=== PATIENT | female | born 1955 | race Caucasian/White ===

== ENCOUNTER → 2019-08-17 07:45 | Outpatient (CLI) | payer BC, SELFPAY ==
[2017-03-28 18:10] VITALS: BMI 38.2
[2019-08-17 10:15] LABS: Absolute Lymphocyte Count 2.19 X10^3/uL (0.83-4.51); Absolute Neutrophil Count 5.8 X10^3/uL (2.0-7.7); Basophil# 0.04 X10^3/uL; Basophil% 0.5 % (0-1); Eosinophil# 0.26 X10^3/uL; Eosinophils% 2.9 % (0-5); Lymphocyte # 2.19 X10^3/ul (4.0); Lymphocyte % 24.8 % (19-41); Mean Corp Hgb Conc 31.8 g/dL (32-36); Mean Corpuscular Hgb 29.2 pg (27.0-32.0); Mean Corpuscular Volume 91.9 fL (81-99); Monocyte# 0.48 X10^3/uL; Monocyte% 5.4 % (0-10); NRBC Flagged by Analyzer 0 % (0-5); Neutrophil # 5.82 X10^3/uL (2.7-7.7); Neutrophil % 66.1 % (47-70); Platelet Count 258 K/mm3 (150-450); RBC Distribution Width CV 13.4 % (11.6-14.6); RBC Distribution Width SD 45.4 fl (35.1-43.9); Red Blood Count 4.79 M/mm3 (4.2-5.4); White Blood Count 8.8 K/mm3 (4.4-11.0)
[2019-08-17 10:36] LABS: ALB/GLOB Ratio 0.9 RATIO (0.9-2.4); AST(SGOT) 25 U/L (15-37); Alanine Aminotransfer ALT/SGPT 32 U/L (13-56); Albumin, Serum 3.5 g/dL (3.2-5.0); Alkaline Phosphatase 88 U/L (45-117); Anion Gap 5 (5-15); BUN 17 mg/dL (7-18); BUN/Creat Ratio 24.1 RATIO (10-20); Calcium,Total 8.7 mg/dL (8.5-10.1); Chloride 106 mmol/L (98-107); Cholesterol 172 mg/dL (200); Creatinine, Serum 0.71 mg/dL (0.55-1.02); EST Glomerular Filtration Rate 89 mL/min (>60); Est Glom Filt Rate - Afr Amer 107 mL/min (>60); Globulin 3.7 g/dL (2.2-4.2); Glucose 99 mg/dL (74-106); High Density Lipoprotein 51 mg/dL; Potassium 3.7 mmol/L (3.5-5.1); Protein, Total 7.2 g/dL (6.4-8.2); Sodium Level 142 mmol/L (136-145); Triglycerides 115 mg/dL; Very Low Density Lipoprotein 23 mg/dL (5-40)
[2019-08-18 12:58] LABS: Thyroid Stim Hormone (TSH) 3.56 uIU/mL (0.358-3.74)
== END ==
PROVIDERS: Family Provider Family Medicine; PCP Family Medicine; Referring Provider Family Medicine; Visit Provider Family Medicine
DX: E78.00 Pure hypercholesterolemia, unspecified (principal); Q61.3 Polycystic kidney, unspecified; R79.82 Elevated C-reactive protein (CRP); I10 Essential (primary) hypertension; R53.83 Other fatigue
CPT/HCPCS: 36415; 80053; 80061; 84443; 85025; 86140

== ENCOUNTER → 2021-03-07 08:12 | Outpatient (CLI) | payer BC, SELFPAY ==
--- NOTE | 2021-03-07 08:16 | BI_ITS ---
MAMMOGRAPHY - BILATERAL SCREENING REASON FOR EXAM: Female, 66 years old. Routine annual screening examination. PERTINENT HISTORY: Non-contributory. History of prior right ultrasound-guided breast biopsy. TECHNIQUE: Digital bilateral breast kirti (3D mammographic acquisition) in the CC and MLO projections. 2-D mediolateral oblique (MLO) and craniocaudad (CC) views of both breasts were obtained. CAD: Full Field Digital Mammography with Computer Added Detection was performed. COMPARISON: Comparison is made with prior study dated 11/06/2016 and 05/03/2012. FINDINGS: Breast Composition: The breasts are almost entirely fatty. There are no dominant masses or suspicious calcifications. Stable benign-appearing bilateral axillary lymph nodes. No other significant abnormalities are identified. There has been no significant change since the prior study. BI/SCRN MAMM (CAD)W/KIRTI BILAT IMPRESSION: Stable bilateral screening mammogram. Yearly follow-up mammogram recommended. (A) ASSESSMENT CATEGORY: BIRADS Category 2: Benign. A letter regarding these results will be sent to the patient by the facility within 30 days. Approximately 10% of breast cancers are not detected by mammography. A normal mammogram should not delay biopsy of a clinically suspicious abnormality. [id number] Electronically Signed: Km Barrett MD at 10:07 EDT , Service support ,
== END ==
PROVIDERS: PCP Family Medicine; Referring Provider Family Medicine; Visit Provider Family Medicine
DX: Z12.31 Encounter for screening mammogram for malignant neoplasm of breast (principal)
CPT/HCPCS: 77063; 77067

== ENCOUNTER → 2021-06-25 07:46 | Outpatient (CLI) | payer BC, SELFPAY ==
[2017-03-28 18:10] VITALS: BMI 38.2
[2021-06-25 10:38] LABS: ALB/GLOB Ratio 1.1 RATIO (0.9-2.4); AST(SGOT) 24 U/L (15-37); Alanine Aminotransfer ALT/SGPT 40 U/L (13-56); Albumin, Serum 3.8 g/dL (3.2-5.0); Alkaline Phosphatase 82 U/L (45-117); Anion Gap 5 (5-15); BUN 17 mg/dL (7-18); BUN/Creat Ratio 24.6 RATIO (10-20); Chloride 104 mmol/L (98-107); Cholesterol 170 mg/dL (200); Creatinine, Serum 0.69 mg/dL (0.55-1.02); EST Glomerular Filtration Rate 90 mL/min (>60); Est Glom Filt Rate - Afr Amer 109 mL/min (>60); Globulin 3.6 g/dL (2.2-4.2); Glucose 102 mg/dL (74-106); High Density Lipoprotein 46 mg/dL; Potassium 4.1 mmol/L (3.5-5.1); Protein, Total 7.4 g/dL (6.4-8.2); Sodium Level 140 mmol/L (136-145); Triglycerides 151 mg/dL; Very Low Density Lipoprotein 30 mg/dL (5-40)
[2021-06-25 10:49] LABS: Microalbumin,Random Urine < 5.0 mg/L (NO RANGE EST.)
== END ==
PROVIDERS: PCP Family Medicine; Referring Provider Family Medicine; Visit Provider Family Medicine
DX: I10 Essential (primary) hypertension (principal)
CPT/HCPCS: 36415; 80053; 80061; 82043; 82570

== ENCOUNTER → 2021-08-02 | Outpatient (CLI) | payer BC, SELFPAY | END | disposition home or self-care (01) | LOC: LABSPEC 13:43 | PROVIDERS: PCP Family Medicine; Referring Provider Family Medicine; Visit Provider Family Medicine | DX: Z20.822 Contact with and (suspected) exposure to COVID-19 (principal) | CPT/HCPCS: 87635; U0005; U0003 ==

== ENCOUNTER → 2021-11-18 | Outpatient (CLI) | payer BC, SELFPAY | END | disposition home or self-care (01) | LOC: LABSPEC 11-19 10:17 | PROVIDERS: PCP Family Medicine; Referring Provider Family Medicine; Visit Provider Family Medicine | DX: Z20.822 Contact with and (suspected) exposure to COVID-19 (principal) | CPT/HCPCS: 87633; 87635; U0005; U0003 ==

== ENCOUNTER 2021-12-09 08:08 | Outpatient (CLI) | payer BC, SELFPAY | END 2021-12-09 23:59 | disposition short-term general hospital (02) | LOC: LABSPEC 12-10 08:08 | PROVIDERS: Referring Provider Family Medicine; Visit Provider Family Medicine | DX: U07.1 COVID-19 (principal) | CPT/HCPCS: 87635; U0003; U0005 ==

== ENCOUNTER 2021-12-13 12:58 | Outpatient (CLI) | payer BC, SELFPAY ==
[2021-12-13 13:07] VITALS: BMI 35.2
[2021-12-13] MEDS: 0.9% Saline Lock 10 ML Syringe IV (13:13)
--- NOTE | 2021-12-13 14:24 | NURSING ---
Pt c/o lower back pain during infusion. Infusion stopped until pain subsided and restarted at 155cc/hr.
[2021-12-13 14:56] VITALS: BP 134/78; PULSE 71; RESP 16; TEMP 36.4; O2SAT 98
--- NOTE | 2021-12-13 14:56 | NURSING ---
No further back pain during infusion.
[2021-12-13 15:50] VITALS: BP 156/79; PULSE 74; RESP 16; TEMP 36.4; O2SAT 98
== END 2021-12-13 23:59 | disposition home or self-care (01) ==
LOC: MS3OUT 12:59 → MS3 12:59
PROVIDERS: Visit Provider Nurse Practitioner Adult Health
DX: U07.1 COVID-19 (principal)
CPT/HCPCS: J7050; M0245; Q0245; A4216

== ENCOUNTER 2022-01-06 09:09 | Outpatient (CLI) | payer BC, SELFPAY ==
[2022-01-06 10:04] LABS: Absolute Lymphocyte Count 2.67 X10^3/uL (0.83-4.51); Basophil# 0.04 X10^3/uL; Basophil% 0.4 % (0-1); Eosinophil# 0.14 X10^3/uL; Eosinophils% 1.3 % (0-5); Hematocrit 43.7 % (37-47); Lymphocyte # 2.67 X10^3/ul (0.83-4.51); Lymphocyte % 25.4 % (19-41); Mean Corpuscular Volume 90.5 fL (81-99); Mean Platelet Vol. 10.2 fl (6.2-12.0); Monocyte# 0.64 X10^3/uL; Monocyte% 6.1 % (0-10); NRBC Flagged by Analyzer 0 % (0-5); Neutrophil # 6.97 X10^3/uL (2.7-7.7); Neutrophil % 66.4 % (47-70); Platelet Count 334 K/mm3 (150-450); RBC Distribution Width CV 14.1 % (11.6-14.6); RBC Distribution Width SD 46.4 fl (35.1-43.9); Red Blood Count 4.83 M/mm3 (4.2-5.4); White Blood Count 10.5 K/mm3 (4.4-11.0)
[2022-01-06 10:25] LABS: Hemoglobin A1c 5.7 % (3.8-5.6)
[2022-01-06 11:01] LABS: ALB/GLOB Ratio 0.9 RATIO (0.9-2.4); AST(SGOT) 27 U/L (15-37); Alanine Aminotransfer ALT/SGPT 31 U/L (13-56); Alkaline Phosphatase 89 U/L (45-117); Anion Gap 7 (5-15); BUN 17 mg/dL (7-18); BUN/Creat Ratio 22.4 RATIO (10-20); Calcium,Total 9.6 mg/dL (8.5-10.1); Chloride 102 mmol/L (98-107); Creatinine, Serum 0.76 mg/dL (0.55-1.02); EST Glomerular Filtration Rate 81 mL/min (>60); Est Glom Filt Rate - Afr Amer 98 mL/min (>60); Globulin 4.3 g/dL (2.2-4.2); Glucose 94 mg/dL (74-106); Potassium 3.6 mmol/L (3.5-5.1); Protein, Total 8.3 g/dL (6.4-8.2); Sodium Level 137 mmol/L (136-145); Thyroid Stim Hormone (TSH) 1.78 uIU/mL (0.358-3.74)
== END 2022-01-06 23:59 | disposition home or self-care (01) ==
LOC: MFPLAB 09:10
PROVIDERS: Visit Provider Family Medicine
DX: E66.01 Morbid (severe) obesity due to excess calories (principal); Z68.37 Body mass index [BMI] 37.0-37.9, adult
CPT/HCPCS: 36415; 80053; 83036; 84443; 85025

== ENCOUNTER → 2023-07-20 | Outpatient (CLI) | payer MEDICARE, OTHER, SELFPAY ==
[2023-07-20 14:45] LABS: AST(SGOT) 19 U/L (15-37); Alanine Aminotransfer ALT/SGPT 28 U/L (13-56); Albumin, Serum 3.8 g/dL (3.2-5.0); Alkaline Phosphatase 79 U/L (45-117); Anion Gap 6 (5-15); BUN 15 mg/dL (7-18); BUN/Creat Ratio 20.8 RATIO (10-20); CRP, High Sensitivity Cardiac 8.58 mg/L; Calcium,Total 9.5 mg/dL (8.5-10.1); Chloride 107 mmol/L (98-107); Cholesterol 170 mg/dL (200); Creatinine, Serum 0.72 mg/dL (0.55-1.02); EST Glomerular Filtration Rate 86 mL/min (>60); Est Glom Filt Rate - Afr Amer 103 mL/min (>60); Globulin 3.8 g/dL (2.2-4.2); Glucose 91 mg/dL (74-106); High Density Lipoprotein 54 mg/dL; Lipase 45 U/L (13-75); Potassium 3.9 mmol/L (3.5-5.1); Protein, Total 7.6 g/dL (6.4-8.2); Sodium Level 138 mmol/L (136-145); Triglycerides 165 mg/dL; Very Low Density Lipoprotein 33 mg/dL (5-40)
== END | disposition home or self-care (01) ==
PROVIDERS: PCP Family Medicine; Visit Provider Family Medicine
DX: R79.82 Elevated C-reactive protein (CRP) (principal); E78.6 Lipoprotein deficiency; E66.9 Obesity, unspecified; Z68.35 Body mass index [BMI] 35.0-35.9, adult
CPT/HCPCS: 36415; 80053; 80061; 83690; 86141

== ENCOUNTER → 2023-08-17 | Outpatient (CLI) | payer MEDICARE, OTHER, SELFPAY ==
[2023-08-17 13:53] LABS: Mucous, Urine 0 SEEN /hpf (<or=2+)
[2023-08-17 15:54] LABS: Color, Urine Yellow (Yellow); Glucose, Dipstick Normal (Normal); Ketone-Dipstick Negative (Negative); Leukocyte Esterase-Dipstick 500 /ul (Negative); Nitrite-Dipstick Negative (Negative); Occult Blood-Urine 250 /ul (Negative); Protein-Dipstick 30 mg/dl (Negative); Specific Gravity, Urine 1.015 (1.002-1.030); Urine Bilirubin Dipstick Negative (Negative); Urine Clarity Cloudy (Clear); Urine Urobilinogen Normal (Normal)
[2023-08-17 16:47] LABS: Amorphous Sediment 1+ PHOS; Bacteria RARE /hpf (None Seen); Red Blood Cells-Urine > 100 SEEN /hpf (0-5); Squamous Epithelial Cells - UA 0-5 SEEN /hpf (5-10); White Blood Cells >100 SEEN /hpf (0-5)
== END | disposition home or self-care (01) ==
LOC: LABSPEC 13:53
PROVIDERS: PCP Family Medicine; Visit Provider Family Medicine
DX: N39.0 Urinary tract infection, site not specified (principal)
CPT/HCPCS: 81001; 87077; 87086; 87088; 87186

== ENCOUNTER → 2024-03-02 | Outpatient (CLI) | payer MEDICARE, OTHER, SELFPAY ==
--- NOTE | 2024-03-02 13:20 | BI_ITS ---
MAMMOGRAPHY - BILATERAL SCREENING REASON FOR EXAM: Female, 69 years old. Routine annual screening examination. PERTINENT HISTORY: Non-contributory. TECHNIQUE: Digital bilateral breast kirti (3D mammographic acquisition) in the CC and MLO projections. 2-D mediolateral oblique (MLO) and craniocaudad (CC) views of both breasts were obtained. CAD: Full Field Digital Mammography with Computer Added Detection was performed. COMPARISON: Comparison is made with prior study dated March 07, 2021 and November 06, 2016. FINDINGS: Breast Composition: The breasts are almost entirely fatty. There are no dominant masses or suspicious calcifications. Stable small benign-appearing bilateral axillary lymph nodes. No other significant abnormalities are identified. There has been no significant change since the prior study. BI/SCRN MAMM (CAD)W/KIRTI BILAT IMPRESSION: Stable bilateral screening mammogram. Yearly follow-up mammogram recommended. (A) ASSESSMENT CATEGORY: BIRADS Category 2: Benign. A letter regarding these results will be sent to the patient by the facility within 30 days. Approximately 10% of breast cancers are not detected by mammography. A normal mammogram should not delay biopsy of a clinically suspicious abnormality. [id number] Electronically Signed: Km Barrett MD at 15:18 EDT ,
--- NOTE | 2024-03-02 13:26 | BD_ITS ---
STUDY: DUAL ENERGY X-RAY ABSORPTIOMETRY / DXA REASON FOR EXAM: Female, 69 years old. [id number] TECHNIQUE: Bone Mineral Density (BMD) measurements of lumbar spine and bilateral hips were obtained. COMPARISON: None. FINDINGS: Lumbar Spine (L1-L4): g/cm2 (1.134) / T-score (0.8) / Z-score (2.8) Findings are suggestive of normal bone density with a low fracture risk. Left Femur Total: g/cm2 (1.182) / T-score (2.0) / Z-score (3.4) Left Femoral Neck: g/cm2 (1.027) / T-score (1.6) / Z-score (3.3) Right Femur Total: g/cm2 (1.081) / T-score (1.1) / Z-score (2.6) Right Femoral Neck: g/cm2 (1.056) / T-score (1.9) / Z-score (3.6) BD/Dexa Bone Density Study IMPRESSION: The patient is considered normal as outlined below according to World Nehem[employer] Organization (WHO) criteria with a low fracture risk. Reference Information: The T-score is the number of standard deviations above or below the standard which is normal for young adults at their peak bone mineral density. The World Health Organization (WHO) interprets the T-scores as follows: Above -1 Normal bone density Between -1 and -2.5 Osteopenia Equal to / or below -2.5 Osteoporosis As a practical clinical guideline, osteopenia may be graded as follows: Mild -1 through -1.5 Moderate -1.6 through -2.0 Severe -2.1 through -2.4 The Z-score is the number of standard deviations above or below age-matched controls. A Z-score of less than -1.5 would be considered abnormal. References: 1. NIH Osteoporosis and Related Bone Diseases www osteo.org 2. International Society for Clinical Densitometry www iscd.org 3. National Osteoporosis Foundation www nof.org Electronically Signed: Km Barrett MD at 19:19 EDT ,
== END | disposition home or self-care (01) ==
LOC: OPBD 13:19
PROVIDERS: PCP Family Medicine; Referring Provider Family Medicine; Visit Provider Family Medicine
DX: Z12.31 Encounter for screening mammogram for malignant neoplasm of breast (principal); Z78.0 Asymptomatic menopausal state
CPT/HCPCS: 77063; 77067; 77080

== ENCOUNTER → 2024-09-02 | Outpatient (CLI) | payer MEDICARE, OTHER, SELFPAY ==
--- NOTE | 2024-09-02 14:15 | RAD_ITS ---
STUDY: X-RAY - CERVICAL SPINE REASON FOR EXAM: Female, 69 years old. pain TECHNIQUE: XR Spine Cervical Views 6 COMPARISON: None FINDINGS: Normal anterior atlantoaxial articulation. No acute findings of the odontoid process. There is straightening of the normal cervical lordosis. There is multi-level endplate spondylosis. There is multi-level degenerative disc disease with multilevel disc space narrowing. There is multi-level osseous foraminal stenosis. The soft tissue structures are unremarkable. RAD/Cerv Spine 4 or 5 Views IMPRESSION: There are degenerative changes as noted above. Electronically Signed: Andrés Roldan MD at 15:35 EDT ,
== END | disposition home or self-care (01) ==
PROVIDERS: PCP Family Medicine; Referring Provider Family Medicine; Visit Provider Family Medicine
DX: M54.2 Cervicalgia (principal)
CPT/HCPCS: 72050

== ENCOUNTER 2024-09-16 14:30 | Outpatient (RCR) | payer MEDICARE, OTHER, SELFPAY ==
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
--- NOTE | 2024-11-09 13:49 | HP.PTDCNRP_ITS ---
Patient Information Patient Information: KALEIGH GOSS was seen in my office for initial evaluation on 09/01/24. The following Plan of Care was established for this patient: POC Established Initial Frequency: 2x /Week Initial Duration: 4 Weeks Anticipated Interventions Patient/Client Instruction: Educate patient on: Condition and Plan of Care For the Purpose of:: To decrease pain, To increase ROM, To improve muscle performance and motor function, To increase tolerance to activity/condition/position, To improve ability of physical actions for home/community/work/leisure, To improve health of tissue, To decrease soft tissue restriction, To increase flexibility/ROM and To improve tolerance to ADL's Therapeutic Exercise to Include: Strength training, Postural training, Flexibilty training, Active ROM and Scapular Strength/Stabilization For the Purpose of:: To decrease pain, To increase ROM, To improve muscle performance and motor function, To increase tolerance to activity/condition/position, To improve ability of physical actions for home/community/work/leisure, To improve health of tissue, To decrease soft tis harman restriction and To increase flexibility/ROM Manual Therapy Techniques to Include: Soft tissue mobilization For the Purpose of:: To decrease pain, To increase ROM, To improve muscle performance and motor function, To improve ability to perform ADL's, To increase tolerance to activity/condition/position, To improve ability of physical actions for home/community/work/leisure, To improve health of tissue, To decrease soft tissue restriction and To increase flexibility/ROM TENS: Yes IF ES: Yes Cryotherapy (ice pack, ice massage): Yes Thermo therapy (hot pack): Yes Ultrasound (thermal/non thermal): Yes For the Purpose of:: To decrease pain, To increase ROM, To improve nutrient delivery to tissue, To increase oxygenation perfusion, To improve health of tissue and To decrease soft tissue restriction Last Seen Last Seen: This patient was last seen in our office . Pertinent comments regarding their Physical therapy will appear below: Patient was seen for PT for cervicalgia for cervical ROM ,postural ex's and HEP thus D/C At this point I will be discontinuing this patient from physical therapy. I would be happy to see this patient again in the future if found appropriate by the physician. Thank you! Harjeet Owens, PT, Cert MDT, OCS Balance/Gait/Functional tests Balance/Special Test Scores Oswestry Neck Score: 28
== END 2024-09-16 19:00 | disposition home or self-care (01) ==
LOC: PT 14:30
PROVIDERS: PCP Family Medicine; Referring Provider Family Medicine; Visit Provider Family Medicine
DX: M54.2 Cervicalgia (principal)
CPT/HCPCS: 97014; 97110; 97140; 97162; G0283

== ENCOUNTER → 2024-11-08 | Outpatient (CLI) | payer MEDICARE, OTHER, SELFPAY ==
[2024-11-08 19:11] LABS: Anion Gap 7 (5-15); BUN 22 mg/dL (7-18); BUN/Creat Ratio 31.2 RATIO (10-20); Calcium,Total 9.9 mg/dL (8.5-10.1); Chloride 101 mmol/L (98-107); EST Glomerular Filtration Rate 87 mL/min (>60); Est Glom Filt Rate - Afr Amer 106 mL/min (>60); Glucose 110 mg/dL (74-106); Potassium 3.2 mmol/L (3.5-5.1); Sodium Level 137 mmol/L (136-145)
== END | disposition home or self-care (01) ==
LOC: MFPLAB 16:18
PROVIDERS: PCP Family Medicine; Visit Provider Family Medicine
DX: I10 Essential (primary) hypertension (principal)
CPT/HCPCS: 36415; 80048

== ENCOUNTER → 2024-12-20 | Outpatient (CLI) | payer MEDICARE, OTHER, SELFPAY ==
[2024-12-20 13:34] LABS: Anion Gap 9 (5-15); BUN 15 mg/dL (7-18); BUN/Creat Ratio 19.9 RATIO (10-20); Calcium,Total 9.6 mg/dL (8.5-10.1); Chloride 105 mmol/L (98-107); Creatinine, Serum 0.75 mg/dL (0.55-1.02); EST Glomerular Filtration Rate 81 mL/min (>60); Est Glom Filt Rate - Afr Amer 98 mL/min (>60); Glucose 99 mg/dL (74-106); Magnesium 2.7 mg/dL (1.6-2.6); Potassium 3.9 mmol/L (3.5-5.1); Sodium Level 140 mmol/L (136-145)
== END | disposition home or self-care (01) ==
LOC: MFPLAB 10:13
PROVIDERS: PCP Family Medicine; Referring Provider Family Medicine; Visit Provider Family Medicine
DX: I10 Essential (primary) hypertension (principal); E87.6 Hypokalemia
CPT/HCPCS: 36415; 80048; 83735

== ENCOUNTER → 2025-02-13 | Outpatient (CLI) | payer MEDICARE, OTHER, SELFPAY ==
[2025-02-13 16:08] LABS: Anion Gap 12 (5-15); BUN 19 mg/dL (4-19); BUN/Creat Ratio 24.6 RATIO (10-20); Calcium,Total 10.6 mg/dL (7.6-11.0); Carbon Dioxide 26.2 mmol/L (21.0-32.0); Chloride 99 mmol/L (98-108); Creatinine, Serum 0.78 mg/dL (0.70-1.20); EST Glomerular Filtration Rate 82 (>60); Glucose 88 mg/dL (70-99); Potassium 4.1 mmol/L (3.3-5.1); Sodium Level 137 mmol/L (133-145)
== END | disposition home or self-care (01) ==
LOC: MFPLAB 12:33
PROVIDERS: PCP Family Medicine; Referring Provider Family Medicine; Visit Provider Family Medicine
DX: I10 Essential (primary) hypertension (principal)
CPT/HCPCS: 36415; 80048

== ENCOUNTER → 2025-09-15 | Outpatient (CLI) | payer MEDICARE, OTHER, SELFPAY ==
[2025-09-15 09:59] LABS: AST(SGOT) 29 U/L (<=31); Alanine Aminotransfer ALT/SGPT 25 U/L (<=34); Albumin, Serum 4.1 g/dL (3.4-4.8); Alkaline Phosphatase 79 U/L (35-104); Anion Gap 11 (5-15); BUN 17 mg/dL (4-19); BUN/Creat Ratio 23.5 RATIO (10-20); Bilirubin, Direct 0.10 mg/dL (0.00-0.30); Calcium,Total 9.7 mg/dL (7.6-11.0); Carbon Dioxide 28.1 mmol/L (21.0-32.0); Chloride 102 mmol/L (98-108); Cholesterol 160 mg/dL (<=200); Globulin 3.0 g/dL (2.2-4.2); Glucose 118 mg/dL (70-99); Low Density Lipoprotein Calc. 84 mg/dL; Magnesium 2.7 mg/dL (1.5-2.2); Potassium 3.5 mmol/L (3.3-5.1); Triglycerides 161 mg/dL; Very Low Density Lipoprotein 32 mg/dL (5-40); cholesterol:hdl ratio screen 3.66
[2025-09-16 05:07] LABS: CRP, High Sensitivity 14.95 mg/L (0.00-3.00)
== END | disposition home or self-care (01) ==
LOC: LAB 08:22
PROVIDERS: PCP Family Medicine; Referring Provider Internal Medicine Cardiovascular Disease; Visit Provider Internal Medicine Cardiovascular Disease
DX: E78.5 Hyperlipidemia, unspecified (principal); I10 Essential (primary) hypertension
CPT/HCPCS: 36415; 80048; 80061; 80076; 83695; 83735; 84443; 86141

== ENCOUNTER → 2025-10-09 | Outpatient (CLI) | payer MEDICARE, OTHER, SELFPAY ==
--- NOTE | 2025-10-09 12:51 | ECHOD_ITS ---
Reason For Study Reason For Study: HYPERTENSION Procedure This was a 2D Doppler, Color Flow transthoracic echocardiogram. Exam performed in department. Left Ventricle Normal LV size. The left ventricular ejection fraction is 65 %. Stage 1 diastolic dysfunction. No regional wall motion abnormalities noted. Right Ventricle Normal RV size. Normal systolic function. Atria Normal left atrium. Normal right atrium. Mitral Valve Normal mitral valve. Tricuspid Valve Normal tricuspid valve. Aortic Valve Normal aortic valve. Trisinus/trileaflet aortic valve. Pulmonic Valve Normal pulmonic valve. Great Vessels Normal aortic root. The pulmonary artery is normal size. Inferior vena cava collapse with respiration. Pericardium/Pleural No pericardial effusion. MMode/2D Measurements & Calculations LVIDd: 4.9 cm IVSd: 0.78 cm Ao root diam: 3.1 cm LVIDs: 2.9 cm LVPWd: 0.68 cm RVDd: 3.8 cm FS: 41.3 % LAV(MOD-bp): 42.2 ml LVAd ap4: 27.9 cm2 LVAd ap2: 25.5 cm2 LAV(MOD-bp) Indexed: 20.7 ml/m2 LVLd ap4: 8.1 cm LVLd ap2: 8.1 cm LAV(MOD-sp2): 50.3 ml EDV(MOD-sp4): 78.3 ml EDV(MOD-sp2): 66.2 ml LAV(MOD-sp4): 34.0 ml EDV(sp4-el): 81.6 ml EDV(sp2-el): 68.0 ml LVAs ap4: 13.5 cm2 LVAs ap2: 11.9 cm2 LVLs ap4: 6.7 cm LVLs ap2: 6.5 cm ESV(MOD-sp4): 22.9 ml ESV(MOD-sp2): 19.5 ml ESV(sp4-el): 23.3 ml ESV(sp2-el): 18.7 ml EF(MOD-sp4): 70.7 % EF(MOD-sp2): 70.5 % EF(sp4-el): 71.5 % SV(MOD-sp4): 55.3 ml SV(MOD-sp2): 46.7 ml SV(sp4-el): 58.3 ml SI(MOD-sp4): 27.2 ml/m2 SI(MOD-sp2): 22.9 ml/m2 LA A4 area: 14.0 cm2 LA dimension(2D): 4.0 cm RA A4 area: 13.6 cm2 TAPSE: 2.3 cm Time Measurements MV dec time: 0.23 sec Doppler Measurements & Calculations MV E max calvin: 80.2 cm/sec Lat Peak E' Calvin: 9.1 cm/sec Med Peak E' Calvin: 6.5 cm/sec MV A max calvin: 95.7 cm/sec E/E' lat: 8.8 E/E' med: 12.4 MV E/A: 0.84 Ao V2 max: 118.0 cm/sec LV V1 max: 85.6 cm/sec MV dec slope: 346.9 cm/sec2 Ao max P.6 mmHg LV V1 max P.9 mmHg Ao V2 mean: 72.0 cm/sec LV V1 mean P.7 mmHg Ao mean P.5 mmHg LV V1 mean: 61.4 cm/sec Ao V2 VTI: 23.2 cm LV V1 VTI: 19.8 cm AV (velocity ratio): 0.85 PA V2 max: 76.1 cm/sec ECHO/Echo Complete Interpretation Summary Normal LV size. The left ventricular ejection fraction is 65 %. Stage 1 diastolic dysfunction. Structurally normal valves. Ordering Physician: Negro Duran Referring Physician: Sam Goddard Performed By: Augusta Oliveira RDCS
--- OUTSIDE RECORDS SUMMARY | 2025-10-09 15:12 | XMS RPT_ITS | CCD ---
Author Organization [facility] Care Team Providers Care [employer] Manager Name Role Phone Unavailable Primary Care Provider Unavailabl e Rupesh COATS, Dr. Vargas Primary Care Provider [phone] Rupesh COATS, Dr. Vargas Attending Provider Rupesh COATS, Dr. Vargas Referring Provider Rupesh COATS, Dr. Vargas Primary Care Physician Rupesh COATS, Dr. Vargas Referring Provider Renee COATS, Dr. Tom Attending Physician Renee COATS, Dr. Tom Referring Provider Goddard, Sam Primary Care Unavailable Goddard, Sam Attending Unavailable Goddard, Sam Referring Unavailable Renee, Columbia Attending Unavailable Renee, Columbia Referring Unavailable Goddard, Sam Primary Care Unavailable Renee, Columbia Attending Unavailable Renee, Columbia Referring Unavailable Goddard, Sam Primary Care Unavailable Renee, Negro Attending Unavailable Renee, Columbia Referring Unavailable Goddard, Sam Primary Care Unavailable Renee, Columbia Attending Unavailable Goddard, Sam Referring Unavailable Goddard, Sam Primary Care Unavailable Goddard, Sam Primary Care Unavailable Goddard, Sam Attending Unavailable Goddard, Sam Primary Care Unavailable Goddard, Sam Attending Unavailable Goddard, Sam Referring Unavailable Allergies Allergy Classification Reported Allergen(s) Allergy Type Date of Onset Reaction(s) Facility (2 sources) Amitriptyline; Translations: [AMITRIPTYLINE HCL] Drug Allergy 2 Other: See Comments [facility] (3 sources) Ampicillin; Translations: [AMPICILLIN] Drug Allergy 2 Diarrhea [facility] (2 sources) Benzalkonium; Translations: [BENZALKONIUM CHLORIDE] Drug Allergy 2 Rash [facility] (2 sources) Diclofenac; Translations: [DICLOFENAC SODIUM] Drug Allergy 2 GI Upset [facility] (2 sources) hydrOXYzine; Translations: [HYDROXYZINE HCL] Drug Allergy 2 Other: See Comments [facility] (2 sources) Imipramine; Translations: [IMIPRAMINE HCL] Drug Allergy 2 Unknown [facility] (2 sources) nefazodone; Translations: [NEFAZODONE HCL] Drug Allergy 2 Unknown [facility] (3 sources) Nizatidine; Translations: [NIZATIDINE] Drug Allergy 2 Other: See Comments [facility] (1 source) Amitriptyline Drug Allergy 5 "felt poorly" [facility] (1 source) Bacitracin Drug Allergy 5 Rash [facility] (1 source) Diclofenac Drug Allergy 5 Abd cramps/diarrhea [facility] (1 source) Etodolac Drug Allergy 5 dizziness [facility] (1 source) hydrOXYzine Drug Allergy 5 "felt poorly" [facility] (1 source) Imipramine Drug Allergy 5 PT UNSURE OF REACTION [facility] (1 source) nefazodone Drug Allergy 5 PT UNSURE OF REACTION [facility] (1 source) Neomycin Drug Allergy 5 Rash [facility] (1 source) Polymyxin B Drug Allergy 5 Rash [facility] (1 source) Amitriptyline Drug Allergy 5 [facility] (1 source) Ampicillin Drug Allergy 5 [facility] (1 source) Bacitracin Drug Allergy 5 [facility] (1 source) Diclofenac Drug Allergy 5 [facility] (1 source) Etodolac Drug Allergy 5 [facility] (1 source) hydrOXYzine Drug Allergy 5 [facility] (1 source) Imipramine Drug Allergy 5 [facility] (1 source) nefazodone Drug Allergy 5 [facility] (1 source) Neomycin Drug Allergy 5 [facility] (1 source) Nizatidine Drug Allergy 5 [facility] (1 source) polymyxin B Drug allergy (disorder) 5 [facility] Medications Current Medications Medication Drug Class(es) Dates Sig (Normalized) Sig (Original) 200 actuat albuterol 0.09 mg/actuat dry powder inhaler (1 source) beta2-Adrenergic Agonist Start: 09-11-2025 aspirin 81 mg oral tablet (1 source) Platelet Aggregation Inhibitor, Nonsteroidal Anti-inflammatory Drug Aspirin 81 mg CpDR Take by mouth. Active clonazePAM 0.5 mg oral tablet (7 sources) Benzodiazepine Start: 03-28-2017 End: 09-11-2025 take 1 tablet by mouth twice daily as needed Start: 01-13-2006 take 1 tablet by sourav th at bedtime Clonazepam 0.5 MG tablet Active 0.5 mg PO AT BEDTIME March 28, 2017 12:00am hydroCHLOROthiazide 25 mg oral tablet (1 source) Thiazide Diuretic Start: 09-13-2025 take 1 tablet by mouth once daily in the morning hydroCHLOROthiazide 25 mg / triamterene 37.5 mg oral capsule (6 sources) Potassium-spari ng Diuretic, Thiazide Diuretic Start: 10-28-2024 triamterene-h ydroCHLOROthi azide (DYAZIDE) 37.5-25 mg per capsule 10/28/2024 Active Start: 12-13-2021 End: 09-13-2025 Triamterene-Hydrochlorothiaz id 37.5-25 mg capsule Discontinued 1 NMA PO DAILY December 13, 2021 1:00am September 13, 2025 10:47am Start: 12-13-2021 take 1 capsule by mouth once daily Triamterene-Hydrochlorothiazid Active 1 CAP PO DAILY December 13, 2021 1:00am losartan potassium 100 mg oral tablet (1 source) Angiotensin 2 Receptor Francy Start: 09-13-2025 take 1 tablet by mouth once daily magnesium oxide 400 mg oral tablet (1 source) Start: 09-11-2025 End: 09-20-2025 take 1 tablet by mouth once daily Magnesium Oxide 400 mg magnesium tablet Discontinued 400 mg PO daily September 11, 2025 12:00am September 20, 2025 12:35pm multivitamin tablet (1 source) take 1 tablet by mouth once daily multivitamin tablet Take 1 tablet by mouth once daily. Active phentermine hydrochloride 37.5 mg oral tablet (1 source) Sympathomimetic Amine Anorectic Start: 08-23-2012 take 1 tablet by mouth once daily Phentermine HCl 37.5 mg tablet Take 1 tablet by mouth once daily. 0 08/23/2012 Active potassium citrate 10 meq extended release oral tablet (1 source) Start: 11-09-2024 potassium citrate ER (UROCIT-K) 10 mEq (1,080 mg) 11/09/2024 Active Tirzepatide (1 source) Start: 09-11-2025 Completed/Discontinued Medications Medication Drug Class(es) Dates Sig (Normalized) Sig (Original) ibuprofen 400 mg oral tablet (5 sources) Nonsteroidal Anti-inflammatory Drug Start: 03-30-2017 End: 09-11-2025 take 1 tablet by mouth every four hours as needed for pain Ibuprofen 400 MG tablet Discontinued 400 mg PO EVERY 4 HOURS NEEDED as needed for Mild Pain (-02/06) 0 0 March 30, 2017 12:00am September 11, 2025 11:32am Multivitamin-Iron -Folic Acid (Centrum Women) 1 EACH tablet (5 sources) Start: 03-28-2017 End: 09-13-2025 take 1 tablet by mouth once daily Multivitamin-Iron- Folic Acid (Centrum Women) 1 EACH tablet Discontinued 1 NMA PO DAILY March 28, 2017 12:00am September 13, 2025 9:54am Start: 03-28-2017 take 1 tablet by sourav th once daily Wlubrfcgkyko-Xeiu-Qffej Acid (Centrum Women) 1 EACH tablet Active 1 NMA PO DAILY March 28, 2017 12:00am Start: 03-28-2017 take 1 tablet by sourav th once daily Ovhchwjfqebe-Lcrr-Vltwt Acid (Centrum Women) 1 EACH tablet Active 1 EACH PO DAILY March 28, 2017 12:00am Problems Active Problems Problem Classification Problem Date Documented Date Episodic/Chronic Anxiety disorders (1 source) Anxiety; Translations: [Anxiety disorder, unspecified] 09-11-2025 Chronic Diseases of mouth; excluding dental (5 sources) Stomatitis; Translations: [Other forms of stomatitis] 03-30-2017 Episodic Disorders of lipid metabolism (1 source) Hyperlipidemia, unspecified; Translations: [Hyperlipidemia, unspecified] Onset: 09-28-2025 Chronic Essential hypertension (8 sources) Hypertensive disorder; Translations: [Essential (primary) hypertension] Onset: 09-13-2025 03-28-2017 Chronic Fever of unknown origin (5 sources) Fever; Translations: [Fever, unspecified] 03-28-2017 Episodic Other congenital anomalies (1 source) Congenital anomaly of skin; Translations: [Other specified congenital malformations of skin] Onset: 01-13-2006 06-09-2024 Chronic Other ear and sense organ disorders (5 sources) Presbycusis; Translations: [Presbycusis, unspecified ear] 03-28-2017 Episodic Other lower respiratory disease (2 sources) Dyspnea; Translations: [Shortness of breath] 09-11-2025 Episodic Other lower respiratory disease (2 sources) Shortness of breath; Translations: [Shortness of breath] Onset: 09-13-2025 Episodic Other nutritional; endocrine; and metabolic disorders (1 source) Obese class II; Translations: [Class 2 obesity] 09-11-2025 Chronic Other screening for suspected conditions (not mental disorders or infectious disease) (2 sources) Patient encounter status; Translations: [Encounter for screening for lipoid disorders] 09-13-2025 Episodic Other upper respiratory infections (1 source) Viral upper respiratory tract infection; Translations: [Acute upper respiratory infection, unspecified] 02-05-2025 Episodic Viral infection (5 sources) Disease caused by 2019-nCoV; Translations: [COVID-19] 12-12-2021 Episodic Past or Other Problems Problem Classification Problem Date Documented Da te Episodic/Chronic Other connective tissue disease (1 source) Capsulitis; Translations: [Enthesopathy, unspecified] Onset: 11-06-2010 11-06-2010 Episodic Results Test Name Value Interpretation Reference Range Facility Lipoprotein Aon 09-18-2025 Lipoprotein a [Moles/Vol] 22.5 nmol/L Normal <75.0 [facility] Comment on above: Order Comment: Order Date: 11/09/24 Order Info: [id number] - BMP Order Info: [id number] - MG Result Comment: Note : Values greater than or equal to 75.0 nmol/L may indicate an independent risk factor for CHD, but must be evaluated with caution when applied to non- populations due to the influence of genetic factors on Lp(a) across ethnicities. Performed at: [facility] [employer] [id number] Research Nutritionist: David Najera PhD, Phone: [phone] Performed By: #### L 501.5200 #### [facility] [address] [place], [address] CRP, High Sensitivity [id number] on 09-16-2025 CRP, HIGH SENS 14.95 mg/L High 0.00-3.00 [facility] Comment on above: Result Comment: Rela tive Risk for Future Cardiovascular Event Low <1.00 Average 1.00 - 3.00 High >3.00 Performed at: [employer] [id number] Research Nutritionist: David Najera PhD, Phone: [phone] Performed By: #### L 500.3400, L3100.7870, L500.2500, L3400.4600, L500.4100, L501.5200, L501.9520 #### [facility] [address] [place], [address] Anion gap in Serum or Plasma Ordered By: Columbia Renee on 09-15-2025 Anion gap [Moles/Vol] 11 mmol/L - [facility] BUN/creatinine ratioOrdered By: Negro Renee on 09-15-2025 Urea nitrogen/Creatinine [Mass ratio] 23.5 mg/mg High 09-18 [facility] Basic Metabolic Profile (BMP )on 09-15-2025 BUN/CRE 23.5 RATIO High 09-18 [facility] Comment on above: Performed By: #### L 500.3400, L3100.7870, L500.2500, L3400.4600, L500.4100, L501.5200, L501.9520 #### [facility] [address] [place], [address] Calcium [Mass/Vol] 9.7 mg/dL Normal 7.6-11.0 [facility] Comment on above: Performed By: #### L 500.3400, L3100.7870, L500.2500, L3400.4600, L500.4100, L501.5200, L501.9520 #### [facility] [address] [place], [address] Chloride [Moles/Vol] 102 mmol/L Normal 98-108 [facility] Comment on above: Performed By: #### L 500.3400, L3100.7870, L500.2500, L3400.4600, L500.4100, L501.5200, L501.9520 #### [facility] [address] [place], [address] CO2 [Moles/Vol] 28.1 mmol/L Normal 21.0-32.0 [facility] Comment on above: Performed By: #### L 500.3400, L3100.7870, L500.2500, L3400.4600, L500.4100, L501.5200, L501.9520 #### [facility] [address] [place], [address] Creatinine [Mass/Vol] 0.71 mg/dL Normal 0.70-1.20 [facility] Comment on above: Performed By: #### L 500.3400, L3100.7870, L500.2500, L3400.4600, L500.4100, L501.5200, L501.9520 #### [facility] [address] [place], [address] GAP 11 Normal 5-15 [facility] Comment on above: Performed By: #### L 500.3400, L3100.7870, L500.2500, L3400.4600, L500.4100, L501.5200, L501.9520 #### [facility] [address] [place], [address] GFR/1.73 sq M.predicted among non-blacks MDRD (S/P/Bld) [Vol rate/Area] 92 mL/min/{1.73_m2} Normal >60 [facility] Comment on above: Result Comment: mL/m in/1.73m2 CKD-EPI Creatinine Equation (2020) Performed By: #### L 500.3400, L3100.7870, L500.2500, L3400.4600, L500.4100, L501.5200, L501.9520 #### [facility] [address] [place], [address] Glucose [Mass/Vol] 118 mg/dL High 70-99 [facility] Comment on above: Performed By: #### L 500.3400, L3100.7870, L500.2500, L3400.4600, L500.4100, L501.5200, L501.9520 #### [facility] [address] [place], [address] Potassium [Moles/Vol] 3.5 mmol/L Normal 3.3-5.1 [facility] Comment on above: Performed By: #### L 500.3400, L3100.7870, L500.2500, L3400.4600, L500.4100, L501.5200, L501.9520 #### [facility] [address] [place], [address] Sodium [Moles/Vol] 141 mmol/L Normal 133-145 [facility] Comment on above: Performed By: #### L 500.3400, L3100.7870, L500.2500, L3400.4600, L500.4100, L501.5200, L501.9520 #### [facility] [address] [place], [address] Urea nitrogen [Mass/Vol] 17 mg/dL Normal 4-19 [facility] Comment on above: Performed By: #### L 500.3400, L3100.7870, L500.2500, L3400.4600, L500.4100, L501.5200, L501.9520 #### [facility] [address] [place], [address] Bilirubin directOrdered By: Negro Duran on 09-15-2025 Bilirubin.direct [Mass/Vol] 0.10 mg/dL 0.00-0.30 [facility] Bilirubin, totalOrdered By: Columbia Renee on 09-15-2025 Bilirubin [Mass/Vol] 0.25 mg/dL 0.00-1.30 [facility] C-reactive protein measureme nt by high sensitivity methodOrdered By: Negro Duran on 09-15-2025 C-reactive protein measurement by high sensitivity method 14.95 mg/L High 0.00-3.00 [facility] Comment on above: Relative Risk for Fu ture Cardiovascular Event Low <1.00 Average 1.00 - 3.00 High >3.00Performed at: [employer] [facility] [address] [id number] Director: David Najera PhD, Phone: [phone] Calculated very low density lipoprotein (VLDL) cholesterol measurementOrdered By: Negro Duran on 09-15-2025 Calculated very low density lipoprotein (VLDL) cholesterol measurement 32 mg/dL 5-40 [facility] Carbon dioxide, total [Moles /volume] in Central venous bloodOrdered By: Negro Duran on 09-15-2025 CO2 [Moles/Vol] 28.1 mmol/L 21.0-32.0 [facility] Chloride assayOrdered By: Yemi Duran on 09-15-2025 Chloride [Moles/Vol] 102 mmol/L 98-108 [facility] Glomerular filtration rate ( GFR) estimation/1.73 sq m using serum, plasma, or whole bOrdered By: Negroronak Duran on 09-15-2025 GFR/1.73 sq M.predicted among non-blacks MDRD (S/P/Bld) [Vol rate/Area] 92 mL/min/{1.73_m2} >60 [facility] Comment on above: mL/min/1.73m2 CKD-EP I Creatinine Equation (2020) LDL calc ser/plasOrdered By: Negro Duran on 09-15-2025 Cholesterol in LDL [Mass/Vol] 84 mg/dL [facility] Comment on above: Fpgmrxrqnv=672-053 m g/dL & Higher Zabf=788 mg/dL or greaterFriedwald Equation for LDL-C Laboratory - Chemistry and C hemistry - challengeOrdered By: Negro Duran on 09-15-2025 AST [Catalytic activity/Vol] 29 U/L <32 [facility] Lipid Profileon 09-15-2025 CHOL:HDL 3.66 Normal [facility] Comment on above: Performed By: #### L 500.3400, L3100.7870, L500.2500, L3400.4600, L500.4100, L501.5200, L501.9520 #### [facility] [address] [place], [address] Cholesterol [Mass/Vol] 160 mg/dL Normal <=200 [facility] Comment on above: Result Comment: Chol esterol level, Desirable <200 mg/dL Borderline high cholesterol 200-239 mg/dL High cholesterol >=240 mg/dL Recommendations of the NCEP Adult Treatment Panel for the following risk-cutoff thresholds for the [place] population. Performed By: #### L 500.3400, L3100.7870, L500.2500, L3400.4600, L500.4100, L501.5200, L501.9520 #### [facility] [address] [place], [address] Cholesterol in HDL [Mass/Vol] 44 mg/dL Normal [facility] Comment on above: Result Comment: Rula onal Cholesterol Education Program (NCEP) guidelines: <40 mg/dL: Low HDL-cholesterol (major risk factor for CHD) >= 60 mg/dL: High HDL-cholesterol (negative risk factor for CHD) HDL-cholesterol is affected by a number of factors, e.g. smoking, exercise, hormones, sex and age. Performed By: #### L 500.3400, L3100.7870, L500.2500, L3400.4600, L500.4100, L501.5200, L501.9520 #### [facility] [address] [place], [address] Cholesterol in LDL [Mass/Vol] 84 mg/dL Normal [facility] Comment on above: Result Comment: Bord cvhjui=728-336 mg/dL Higher Ttzt=602 mg/dL or greater Friedwald Equation for LDL-C Performed By: #### L 500.3400, L3100.7870, L500.2500, L3400.4600, L500.4100, L501.5200, L501.9520 #### [facility] [address] [place], [address] Cholesterol in VLDL [Mass/Vol] 32 mg/dL Normal 5-40 [facility] Comment on above: Performed By: #### L 500.3400, L3100.7870, L500.2500, L3400.4600, L500.4100, L501.5200, L501.9520 #### [facility] [address] [place], [address] Triglyceride [Mass/Vol] 161 mg/dL Normal [facility] Comment on above: Result Comment: The drugs N-Acetylcysteine and Metamizole may falsely depress this assay. Normal range: <150 mg/dL Borderline High: 150-199 mg/dL High: 200-499 mg/dL Very High: >500 mg/dL Performed By: #### L 500.3400, L3100.7870, L500.2500, L3400.4600, L500.4100, L501.5200, L501.9520 #### [facility] [address] [place], [address] Lipoprotein a [Mass/Vol]Orde red By: Negro Duran on 09-15-2025 Lipoprotein a [Moles/Vol] 22.5 nmol/L <75.0 [facility] Comment on above: Note: Values greater than or equal to 75.0 nmol/L may indicate an independent risk factor for CHD, but must be evaluated with caution when applied to non- populations due to the influence of genetic factors on Lp(a) across ethnicities.Performed at: - [facility] [id number] Director: David Najera PhD, Phone: [phone] Liver Profileon 09-15-2025 Albumin [Mass/Vol] 4.1 g/dL Normal 3.4-4.8 [facility] Comment on above: Performed By: #### L 500.3400, L3100.7870, L500.2500, L3400.4600, L500.4100, L501.5200, L501.9520 #### [facility] [address] [place] [id number] ALK PHOS 79 U/L Normal 35-104 [facility] Comment on above: Performed By: #### L 500.3400, L3100.7870, L500.2500, L3400.4600, L500.4100, L501.5200, L501.9520 #### [facility] [address] [place] [id number] ALT [Catalytic activity/Vol] 25 U/L Normal <=34 [facility] Comment on above: Performed By: #### L 500.3400, L3100.7870, L500.2500, L3400.4600, L500.4100, L501.5200, L501.9520 #### [facility] [address] [facility] [address] AST [Catalytic activity/Vol] 29 U/L Normal <=31 [facility] Comment on above: Performed By: #### L 500.3400, L3100.7870, L500.2500, L3400.4600, L500.4100, L501.5200, L501.9520 #### [facility] [address] [place], [address] Bilirubin [Mass/Vol] 0.25 mg/dL Normal 0.00-1.30 [facility] Comment on above: Performed By: #### L 500.3400, L3100.7870, L500.2500, L3400.4600, L500.4100, L501.5200, L501.9520 #### [facility] [address] [place], [address] Bilirubin.direct [Mass/Vol] 0.10 mg/dL Normal 0.00-0.30 [facility] Comment on above: Performed By: #### L 500.3400, L3100.7870, L500.2500, L3400.4600, L500.4100, L501.5200, L501.9520 #### [facility] [address] [place], [address] Globulin (S) [Mass/Vol] 3.0 g/dL Normal 2.2-4.2 [facility] Comment on above: Performed By: #### L 500.3400, L3100.7870, L500.2500, L3400.4600, L500.4100, L501.5200, L501.9520 #### [facility] [address] [place], [address] T PROT 7.1 g/dL Normal 5.9-8.4 [facility] Comment on above: Performed By: #### L 500.3400, L3100.7870, L500.2500, L3400.4600, L500.4100, L501.5200, L501.9520 #### [facility] [address] [place], [address] Magnesiumon 09-15-2025 Magnesium [Mass/Vol] 2.7 mg/dL High 1.5-2.2 [facility] Comment on above: Performed By: #### L 500.3400, L3100.7870, L500.2500, L3400.4600, L500.4100, L501.5200, L501.9520 #### [facility] [place], [address] Magnesium measurement (mass/ volume)Ordered By: Negro Duran on 09-15-2025 Magnesium (Unsp spec) [Mass/Vol] 2.7 mg/dL High 1.5-2.2 [facility] Potassium measurement (mass/ volume)Ordered By: Columbia Renee on 09-15-2025 Potassium (Unsp spec) [Mass/Vol] 3.5 mmol/L 3.3-5.1 [facility] Screening total cholesterol/ high density lipoprotein (HDL) cholesterol ratioOrdered By: Columbia Renee on 09-15-2025 Cholesterol.total/Choles terol in HDL [Mass ratio] 3.66 {ratio} [facility] Serum creatinine measurement (mass/volume)Ordered By: Negro Duran on 09-15-2025 Creatinine [Mass/Vol] 0.71 mg/dL 0.70-1.20 [facility] Serum globulin measurementOr dered By: Negro Duran on 09-15-2025 Globulin (S) [Mass/Vol] 3.0 g/dL 2.2-4.2 [facility] Serum glucose measurement (m ass/volume)Ordered By: Negro Renee on 09-15-2025 Glucose [Mass/Vol] 118 mg/dL High 70-99 [facility] Serum or plasma alanine quiles otransferase (ALT) measurementOrdered By: Columbia Renee on 09-15-2025 ALT [Catalytic activity/Vol] 25 U/L <35 [facility] Serum or plasma albumin radha urement (mass/volume)Ordered By: Negro Renee on 09-15-2025 Albumin [Mass/Vol] 4.1 g/dL 3.4-4.8 [facility] Serum or plasma alkaline hang sphatase measurementOrdered By: Negro Renee on 09-15-2025 ALP [Catalytic activity/Vol] 79 U/L 35-104 [facility] Serum or plasma calcium radha urement (mass/volume)Ordered By: Negro Renee on 09-15-2025 Calcium [Mass/Vol] 9.7 mg/dL 7.6-11.0 [facility] Serum or plasma cholesterol in HDL measurement (mass/volume)Ordered By: Negro Duran on 09-15-2025 Cholesterol in HDL [Mass/Vol] 44 mg/dL >40 [facility] Comment on above: National Cholesterol Education Program (NCEP) guidelines:<40 mg/dL: Low HDL-cholesterol (major risk factor for CHD)>= 60 mg/dL: High HDL-cholesterol (negative risk factor for CHD)HDL-cholesterol is affected by a number of factors, e.g. smoking, exercise, hormones, sex and age. Serum or plasma cholesterol measurement (mass/volume)Ordered By: Negro Duran on 09-15-2025 Cholesterol [Mass/Vol] 160 mg/dL <201 [facility] Comment on above: Cholesterol level, D esirable <200 mg/dLBorderline high cholesterol 200-239 mg/dLHigh cholesterol >=240 mg/dLRecommendations of the NCEP Adult Treatment Panel for the following risk-cutoff thresholds for the [place] population. Serum or plasma urea nitroge n measurement (mass/volume)Ordered By: Negro Duran on 09-15-2025 Urea nitrogen [Mass/Vol] 17 mg/dL 4-19 [facility] Sodium levelOrdered By: Chiki Duran on 09-15-2025 Sodium [Moles/Vol] 141 mmol/L 133-145 [facility] TSH DL <= 0.005 mIU/L QnOrde red By: Negro Duran on 09-15-2025 TSH Qn 2.020 uIU/mL 0.300-4.200 [facility] Thyroid Stim Hormone (TSH)on 09-15-2025 TSH 2.020 uIU/mL Normal 0.300-4.200 [facility] Comment on above: Performed By: #### L 500.3400, L3100.7870, L500.2500, L3400.4600, L500.4100, L501.5200, L501.9520 #### [facility] [place], [address] Total proteinOrdered By: Bluelatha Duran on 09-15-2025 Protein [Mass/Vol] 7.1 g/dL 5.9-8.4 [facility] Triglycerides measurementOrd ered By: Negro Renee on 09-15-2025 Triglyceride [Mass/Vol] 161 mg/dL <199 [facility] Comment on above: The drugs N-Acetylcy steine and Metamizole may falsely depress this assay. Normal range: <150 mg/dLBorderline High: 150-199 mg/dLHigh: 200-499 mg/dLVery High: >500 mg/dL Cardiology Visit Reporton Cardiology Visit Report [facility] [facility] [id number] [facility]. [address] [place] [address] OFFICE VISIT Date of Service: 09/13/25 MR#: [id number] Acct: [id number] Name: WOLFGANGKALEIGH SRINIVASAN Rep #: [id number] : 1955 Provider: Dr. Negro Duran MD Age/Sex: 70/F Location: [facility] Status: Signed HPI HPI History of Present Illness Details: The patient is a 70-year-old female with a history of hypertension and fluid retention, presenting for evaluation of dyspnea and management of blood pressure and medication regimen. The patient reports a recent episode of dyspnea while sitting, described as an uncomfortable sensation she had never experienced before. She denies any other associated symptoms during this episode. She has used albuterol as needed, which provides some relief. Her has noted that she often breathes heavily, particularly after activities such as running up stairs. She has been monitoring her blood pressure, heart rate, and oxygen saturation over the past year and notes that her blood pressure readings have been elevated recently. She has a documented history of hypertension and has been taking triamterene/hydrochlo rothiazide for decades, initially prescribed for fluid retention following a hysterectomy performed over 25 years ago. She reports that if she stops taking the medication, she experiences significant fluid retention, gaining approximately 3 pounds of water weight overnight, with associated edema in her feet and hands. She was advised to increase her dose to two pills daily due to elevated blood pressure but has been inconsistent with this regimen. She denies any chest pain or paroxysmal nocturnal dyspnea and she does not have any pedal edema when she is on her current medications. Physical exam is unremarkable electrocardiogram demonstrates sinus rhythm with a rate of 77 bpm poor R wave progression is present. In October, her potassium level was found to be low, and she was started on potassium supplementation. A recheck in February showed normal potassium levels, and the supplementation was discontinued. She was also prescribed magnesium oxide but has not taken it. She was recently prescribed doxepin to help with sleep instead of clonazepam, and compounded tirzepatide, which she plans to start now that she has returned from a trip to [place]. She walks 3 miles daily and follows a diet influenced by Mediterranean and Blue Zone principles. She denies eating this morning. She reports a history of elevated CRP levels and mentions that her cholesterol was last checked in January 2023. She has a family history of longevity, with her [id number] living to 97 years. 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 Required: No Accompanied by: Self Is patient in pain?: No Allergies ampicillin Allergy (Intermediate, Verified 09/13/25 09:52) Diarrhea bacitracin (From Neosporin (pep-efn-fcyis)) Allergy (Intermediate, Verified 09/13/25 09:52) Rash imipramine (From Tofranil) Allergy (Intermediate, Verified 09/13/25 09:52) PT UNSURE OF REACTION nefazodone (From Serzone) Allergy (Intermediate, Verified 09/13/25 09:52) PT UNSURE OF REACTION neomycin (From Neosporin (vfq-iaw-hkxpe)) Allergy (Intermediate, Verified 09/13/25 09:52) Rash polymyxin B (From Neosporin (sto-woh-uwuaa)) Allergy (Intermediate, Verified 09/13/25 09:52) Rash amitriptyline (From Elavil) Adverse Reaction (Intermediate, Verified 09/13/25 09:52) felt poorly diclofenac (From Voltaren) Adverse Reaction (Intermediate, Verified 09/13/25 09:52) Abd cramps/diarrhea etodolac Adverse Reaction (Intermediate, Verified 09/13/25 09:52) dizziness hydroxyzine (From Vistaril) Adverse Reaction (Intermediate, Verified 09/13/25 09:52) felt poorly nizatidine (From Axid) Adverse Reaction (Intermediate, Verified 09/13/25 09:52) felt poorly Medications ???Medication ???Instructions ???Recorded ???Confirmed ???Type albuterol sulfate 90 mcg/actuation 2 inh inhalation Q6H PRN 5 09/13/25 History breath activated powder inhaler clonazepam 0.5 mg tablet 0.5 mg PO BID PRN 09/11/25 5 History magnesium oxide 400 mg PO QDAY 09/11/25 09/13/25 H istory tirzepatide 2.5 mg/0.5 mL 2.5 mg subcut QWEEK 09/11/2509/13 History subcutaneous pen injector (Bijal) hydrochlorothiazide 25 mg tablet 25 mg PO QAM #90 tabs 09/13/25 Rx losartan 100 mg tablet 100 mg PO QDAY #90 tabs 09/13/25 1 Rx Have you fallen in the past year?: No PFSH Medical History (Updated 09/13/25 @ 10:[address] Negro Rosa (more content not included)... Normal [facility] Anion gap in Serum or Plasma Ordered By: Sam Goddard on 02-13-2025 Anion gap [Moles/Vol] 12 mmol/L 04-13 [facility] BUN/creatinine ratioOrdered By: Sam Goddard on 02-13-2025 Urea nitrogen/Creatinine [Mass ratio] 24.6 mg/mg High 09-18 [facility] Basic Metabolic Profile (BMP )on 02-13-2025 BUN/CRE 24.6 RATIO High 09-18 [facility] Comment on above: Order Comment: Order Date: 02/13/25 Order Info: 0667-1 - BMP Performed By: #### L 500.2500 #### [facility] [address] [place], [address] Calcium [Mass/Vol] 10.6 mg/dL Normal 7.6-11.0 [facility] Comment on above: Order Comment: Order Date: 02/13/25 Order Info: 0667-1 - BMP Performed By: #### L 500.2500 #### [facility] [address] [place], [address] Chloride [Moles/Vol] 99 mmol/L Normal 98-108 [facility] Comment on above: Order Comment: Order Date: 02/13/25 Order Info: 0667-1 - BMP Performed By: #### L 500.2500 #### [facility] [address] [place], [address] CO2 [Moles/Vol] 26.2 mmol/L Normal 21.0-32.0 [facility] Comment on above: Order Comment: Order Date: 02/13/25 Order Info: 0667- - BMP Performed By: #### L 500.2500 #### [facility] [address] [place], [address] Creatinine [Mass/Vol] 0.78 mg/dL Normal 0.70-1.20 [facility] Comment on above: Order Comment: Order Date: 02/13/25 Order Info: 0667- - BMP Performed By: #### L 500.2500 #### [facility] [address] [place], [address] GAP 12 Normal 5-15 [facility] Comment on above: Order Comment: Order Date: 02/13/25 Order Info: 0667-1 - BMP Performed By: #### L 500.2500 #### [facility] [address] [place], [address] GFR/1.73 sq M.predicted among non-blacks MDRD (S/P/Bld) [Vol rate/Area] 82 mL/min/{1.73_m2} Normal >60 [facility] Comment on above: Order Comment: Order Date: 02/13/25 Order Info: 0667- - BMP Result Comment: mL/m in/1.73m2 CKD-EPI Creatinine Equation (2020) Performed By: #### L 500.2500 #### [facility] [address] [place], [address] Glucose [Mass/Vol] 88 mg/dL Normal 70-99 [facility] Comment on above: Order Comment: Order Date: 02/13/25 Order Info: 0667- - BMP Performed By: #### L 500.2500 #### [facility] [address] [place], [address] Potassium [Moles/Vol] 4.1 mmol/L Normal 3.3-5.1 [facility] Comment on above: Order Comment: Order Date: 02/13/25 Order Info: 0667- - BMP Performed By: #### L 500.2500 #### [facility] [address] [place], [address] Sodium [Moles/Vol] 137 mmol/L Normal 133-145 [facility] Comment on above: Order Comment: Order Date: 02/13/25 Order Info: 0667- - BMP Performed By: #### L 500.2500 #### [facility] [address] [place], [address] Urea nitrogen [Mass/Vol] 19 mg/dL Normal 4-19 [facility] Comment on above: Order Comment: Order Date: 02/13/25 Order Info: 0667- - BMP Performed By: #### L 500.2500 #### [facility] [address] [place], [address] Carbon dioxide, total [Moles /volume] in Central venous bloodOrdered By: Sam Goddard on 02-13-2025 CO2 [Moles/Vol] 26.2 mmol/L 21.0-32.0 [facility] Chloride assayOrdered By: Daniel Goddard on 02-13-2025 Chloride [Moles/Vol] 99 mmol/L 98-108 [facility] GFR/1.73 sq M.predicted carol g non-blacks MDRD (S/P/Bld) [Vol rate/Area]Ordered By: Sam Goddard on 02-13-2025 Estimated GFR (MDRD) Non-Af Amer 82 >60 [facility] Comment on above: mL/min/1.73m2 CKD-EP I Creatinine Equation (2020) Potassium (Unsp spec) [Mass/ Vol]Ordered By: Sam Goddard on 02-13-2025 Potassium [Moles/Vol] 4.1 mmol/L 3.3-5.1 [facility] Serum creatinine measurement (mass/volume)Ordered By: Sam Goddard on 02-13-2025 Creatinine [Mass/Vol] 0.78 mg/dL 0.70-1.20 [facility] Serum glucose measurement (m ass/volume)Ordered By: Sam Goddard on 02-13-2025 Glucose [Mass/Vol] 88 mg/dL 70-99 [facility] Serum or plasma calcium radha urement (mass/volume)Ordered By: Sam Goddard on 02-13-2025 Calcium [Mass/Vol] 10.6 mg/dL 7.6-11.0 [facility] Serum or plasma urea nitroge n measurement (mass/volume)Ordered By: Sam Goddard on 02-13-2025 Urea nitrogen [Mass/Vol] 19 mg/dL 4-19 [facility] Sodium levelOrdered By: Sam Goddard on 02-13-2025 Sodium [Moles/Vol] 137 mmol/L 133-145 [facility] CNOVon 02-05-2025 CNOV Office Visit ([facility] ) KALEIGH GOSS ([id number]) 1955 F Date Time Provider Department [facility] 12[facility] During your visit today, we recorded the following information about you: Temperature Pulse Respiration Blood pressure 97.9 degrees 90/minute 16/minute 130/84 Weight 98.4 kg Sabrina Sellers APRN.CNP 02/05/2025 12:52 PM Signed [facility] Subjective Kaleigh Goss is a 70 year old female. Patient presents with: Chest Congestion: cough, sinus pressure, fever x 5 days Present for 5 day history of cough, congestion and fever. Reports symptoms have progressively worse since Thursday night. The history is provided by the patient. Review of Systems Constitutional: Positive for chills and fever. HENT: Positive for congestion, rhinorrhea, sinus pressure and sinus pain. Respiratory: Positive for cough. Negative for shortness of breath. Cardiovascular: Negative for chest pain. Objective BP 130/84 Pulse 90 Temp 36.6 ?C (97.9 ?F) Resp 16 Wt 98.4 kg (216 lb 14.9 oz) SpO2 97% Physical Exam Constitutional: General: She is not in acute distress. Appearance: Normal appearance. HENT: Head: Normocephalic. Nose: Congestion and rhinorrhea present. Mouth/Throat: Mouth: Mucous membranes are moist. Pharynx: No oropharyngeal exudate or posterior oropharyngeal erythema. Eyes: Conjunctiva/sclera: Conjunctivae normal. Cardiovascular: Rate and Rhythm: Normal rate and regular rhythm. Pulmonary: Effort: Pulmonary effort is normal. No respiratory distress. Breath sounds: Normal breath sounds. No wheezing. Neurological: Mental Status: She is alert. Psychiatric: Behavior: Behavior normal. ASSESSMENT/PLAN: 1. Viral URI with cough - ICD9: 465.9, ICD10: J06.9 - Discussed viral etiology and rationale for treatment. - Symptomatic treatment with prn analgesia - Supportive care with fluids and rest - The patient may also use OTC decongestants prn, OTC cough and cold meds as needed, warm salt water gargles, throat lozenges and/or OTC throat spray as needed, and nasal saline gtts and suction prn. - Follow up in 3-5 days if symptoms persist or sooner if worsening of symptoms Sabrina Sellers APRN.HERMANN Differential Diagnoses - Viral URI with cough is more likely for the following reason(s): suggested by HANDP - covid is less likely for the following reason(s): neg covid test at home 02/04, HANDP not suggestive and laboratory studies not suggestive Disposition The patient was discharged. Allergies As of Date: 02/05/2025 Noted Allergy Reaction AMPICILLIN 06/03/2012 6 - Diarrhea AXID (NIZATIDINE) 06/03/2012 14 - Other: See Comments Comments: felt poorly ELAVIL (AMITRIPTYLINE HCL) 06/03/2012 14 - Other: See Comments Comments: intolerance/felt poorly NEOSPORIN (BENZALKONIUM CHLORIDE) 06/03/2012 2 - Rash SERZONE (NEFAZODONE HCL) 06/03/2012 16 - Unknown TOFRANIL (IMIPRAMINE HCL) 06/03/2012 16 - Unknown VISTARIL (HYDROXYZINE HCL) 06/03/2012 14 - Other: See Comments Comments: felt poorly VOLTAREN (DICLOFENAC SODIUM) 06/03/2012 8 - GI Upset Date Reviewed: 02/05/2025 Reviewed by: Janina Mckeon MA - Fully Assessed Reason for Visit: Chest Congestion [236] Cmt: cough, sinus pressure, fever x 5 days Primary Visit Diagnosis:Viral URI with cough [J06.9] Prescriptions as of 02/05/2025 - potassium citrate ER (UROCIT-K) 10 mEq (1,080 mg) - triamterene-hydroCHLO ROthiazide (DYAZIDE) 37.5-25 mg per capsule - Phentermine HCl 37.5 mg tablet Take 1 tablet by mouth once daily. - Aspirin 81 mg CpDR Take by mouth. - multivitamin tablet Take 1 tablet by mouth once daily. - KLONOPIN 0.5 MG TAB Take 1/2 tablet daily. 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 Follow-up and Disposition History for Encounter Date Provider Department Center 02/05[facility]20[id number] Encounter Status:Closed by SABRINA SELLERS on 02/05/25 Normal [facility] Basic Metabolic Profile (BMP )on 12-20-2024 BUN/CRE 19.9 RATIO Normal -20 [facility] Comment on above: Order Comment: Order Date: 11/09/24 Order Info: 0667- - BMP Order Info: [id number] - MG Performed By: #### L 500.2500 #### [facility] [address] [place], [address] CA,Total 9.6 mg/dL Normal 8.5-10.1 [facility] Comment on above: Order Comment: Order Date: 11/09/24 Order Info: 06 - BMP Order Info: [id number] - MG Performed By: #### L 500.2500 #### [facility] [address] [place], [address] Chloride [Moles/Vol] 105 mmol/L Normal 98-107 [facility] Comment on above: Order Comment: Order Date: 11/09/24 Order Info: 06 - [facility] Order Info: [id number] - MG Performed By: #### L 500.2500 #### [facility] [address] [place], [place], [address] CO2 [Moles/Vol] 26.0 mmol/L Normal 21.0-32.0 [facility] Comment on above: Order Comment: Order Date: 11/09/24 Order Info: 0667- - BMP Order Info: 52970-1 - MG Performed By: #### L 500.2500 #### [facility] [address] [place], [address] Creatinine [Mass/Vol] 0.75 mg/dL Normal 0.55-1.02 [facility] Comment on above: Order Comment: Order Date: 11/09/24 Order Info: 06- - BMP Order Info: [id number] - MG Result Comment: The validity of the calculated GFR GFRAA in patients over 70 years has not been determined. Clinical correlation is essential. Performed By: #### L 500.2500 #### [facility] [address] [place], [place], [address] EST GFR - AA 98 mL/min Normal >60 [facility] Comment on above: Order Comment: Order Date: 11/09/24 Order Info: 06 - BMP Order Info: [id number] - MG Result Comment: Afri can [place] GFR Calc Performed By: #### L 500.2500 #### [facility] [address] [place], [address] GAP 9 Normal 5-15 [facility] Comment on above: Order Comment: Order Date: 11/09/24 Order Info: 666-11 - [facility] Order Info: [id number] - MG Performed By: #### L 500.2500 #### [facility] [address] [place], [address] GFR/1.73 sq M.predicted among non-blacks MDRD (S/P/Bld) [Vol rate/Area] 81 mL/min/{1.73_m2} Normal >60 [facility] Comment on above: Order Comment: Order Date: 11/09/24 Order Info: 666-11 - [facility] Order Info: [id number] - MG Result Comment: Non- GFR Calc Performed By: #### L 500.2500 #### [facility] [address] [place], [address] Glucose [Mass/Vol] 99 mg/dL Normal 74-106 [facility] Comment on above: Order Comment: Order Date: 11/09/24 Order Info: 666-11 - BMP Order Info: [id number] - MG Performed By: #### L 500.2500 #### [facility] [address] [place], [address] Potassium [Moles/Vol] 3.9 mmol/L Normal 3.5-5.1 [facility] Comment on above: Order Comment: Order Date: 11/09/24 Order Info: 0667- - BMP Order Info: [id number] - MG Performed By: #### L 500.2500 #### [facility] [address] [place], [place], [address] Sodium [Moles/Vol] 140 mmol/L Normal 136-145 [facility] Comment on above: Order Comment: Order Date: 11/09/24 Order Info: 0667-1 - BMP Order Info: [id number] - MG Performed By: #### L 500.2500 #### [facility] [address] [place], [place], [address] Urea nitrogen [Mass/Vol] 15 mg/dL Normal 7-18 [facility] Comment on above: Order Comment: Order Date: 11/09/24 Order Info: 0667-1 - BMP Order Info: [id number] - MG Performed By: #### L 500.2500 #### [facility] [address] [place], [place], [address] Blood urea nitrogen (BUN)/cr eatinine ratioOrdered By: Sam Goddard on 12-20-2024 Urea nitrogen/Creatinine [Mass ratio] 19.9 mg/mg 10-20 [facility] Carbon dioxide measurementOr dered By: Sam Goddard on 12-20-2024 CO2 [Moles/Vol] 26.0 mmol/L 21.0-32.0 [facility] Chloride measurementOrdered By: Sam Goddard on 12-20-2024 Chloride [Moles/Vol] 105 mmol/L 98-107 [facility] Estimated glomerular filtrat ion rate (GFR) AmericanOrdered By: Sam Goddard on 12-20-2024 Estimated GFR (MDRD) Amer 98 mL/min >60 [facility] Comment on above: GFR Calc Glomerular filtration rate ( GFR) estimationOrdered By: Sam Goddard on 12-20-2024 Estimated GFR (MDRD) Non-Af Amer 81 mL/min >60 [facility] Comment on above: Non- GFR Calc Glucose measurementOrdered B y: Sam Goddard on 12-20-2024 Glucose [Mass/Vol] 99 mg/dL 74-106 [facility] Magnesiumon 12-20-2024 Magnesium [Mass/Vol] 2.7 mg/dL High 1.6-2.6 [facility] Comment on above: Order Comment: Order Date: 11/09/24 Order Info: 0667-1 - BMP Order Info: [id number] - MG Performed By: #### L 081.5200 #### [facility] [address] [place], [place], [address] Magnesium measurementOrdered By: Sam Goddard on 12-20-2024 Magnesium [Mass/Vol] 2.7 mg/dL High 1.6-2.6 [facility] Potassium measurementOrdered By: Sam Goddard on 12-20-2024 Potassium [Moles/Vol] 3.9 mmol/L 3.5-5.1 [facility] Serum anion gap measurementO rdered By: Sam Goddard on 12-20-2024 Anion gap [Moles/Vol] 9 mmol/L 5-15 [facility] Serum or plasma calcium radha urement (mass/volume)Ordered By: Sam Goddard on 12-20-2024 Calcium [Mass/Vol] 9.6 mg/dL 8.5-10.1 [facility] Serum or plasma creatinine m easurement (mass/volume)Ordered By: Sam Goddard on 12-20-2024 Creatinine [Mass/Vol] 0.75 mg/dL 0.55-1.02 [facility] Comment on above: The validity of the calculated GFR & GFRAA in patients over 70 years has not been determined. Clinical correlation is essential. Serum or plasma urea nitroge n measurement (mass/volume)Ordered By: Sam Goddard on 12-20-2024 Urea nitrogen [Mass/Vol] 15 mg/dL 7- [facility] Sodium levelOrdered By: Sam Goddard on 12-20-2024 Sodium [Moles/Vol] 140 mmol/L 136-145 [facility] Basic Metabolic Profile (BMP )on 11-08-2024 BUN/CRE 31.2 RATIO High - [facility] Comment on above: Performed By: #### L 847.5200 #### [facility] [address] [place], [place], [address] CA,Total 9.9 mg/dL Normal 8.5-10.1 [facility] Comment on above: Performed By: #### L 709.5200 #### [facility] [address] [place], [address] Chloride [Moles/Vol] 101 mmol/L Normal 98-107 [facility] Comment on above: Performed By: #### L 501.5200 #### [facility] [address] [place], [address] CO2 [Moles/Vol] 29.0 mmol/L Normal 21.0-32.0 [facility] Comment on above: Performed By: #### L 501.5200 #### [facility] [address] [place], [address] Creatinine [Mass/Vol] 0.70 mg/dL Normal 0.55-1.02 [facility] Comment on above: Result Comment: The validity of the calculated GFR GFRAA in patients over 70 years has not been determined. Clinical correlation is essential. Performed By: #### L 501.5200 #### [facility] [address] [place], [address] EST GFR - AA 106 mL/min Normal >60 [facility] Comment on above: Result Comment: Afri can [place] GFR Calc Performed By: #### L 501.5200 #### [facility] [address] [place], [address] GAP 7 Normal 5-15 [facility] Comment on above: Performed By: #### L 501.5200 #### [facility] [address] [place], [address] GFR/1.73 sq M.predicted among non-blacks MDRD (S/P/Bld) [Vol rate/Area] 87 mL/min/{1.73_m2} Normal >60 [facility] Comment on above: Result Comment: Non- GFR Calc Performed By: #### L 501.5200 #### [facility] [address] [place], [address] Glucose [Mass/Vol] 110 mg/dL High 74-106 [facility] Comment on above: Result Comment: Fast ing Glucose result from 100 to 125 mg/dL suggests IMPAIRED HOMEOSTASIS per A.D.A. criteria. Performed By: #### L 501.5200 #### [facility] [address] [place], [address] Potassium [Moles/Vol] 3.2 mmol/L Low 3.5-5.1 [facility] Comment on above: Performed By: #### L 501.5200 #### [facility] [address] [place], [address] Sodium [Moles/Vol] 137 mmol/L Normal 136-145 [facility] Comment on above: Performed By: #### L 501.5200 #### [facility] [address] [place], [address] Urea nitrogen [Mass/Vol] 22 mg/dL High 7-18 [facility] Comment on above: Performed By: #### L 501.5200 #### [facility] [address] [place], [address] Blood urea nitrogen (BUN)/cr eatinine ratioOrdered By: Sam Goddard on 11-08-2024 Urea nitrogen/Creatinine [Mass ratio] 31.2 mg/mg High 10-20 [facility] Carbon dioxide measurementOr dered By: Sam Goddard on 11-08-2024 CO2 [Moles/Vol] 29.0 mmol/L 21.0-32.0 [facility] Chloride measurementOrdered By: Sam Goddard on 11-08-2024 Chloride [Moles/Vol] 101 mmol/L 98-107 [facility] Estimated glomerular filtrat ion rate (GFR) AmericanOrdered By: Sam Goddard on 11-08-2024 Estimated GFR (MDRD) Amer 106 mL/min >60 [facility] Comment on above: GFR Calc Glomerular filtration rate ( GFR) estimationOrdered By: Sam Goddard on 11-08-2024 Estimated GFR (MDRD) Non-Af Amer 87 mL/min >60 [facility] Comment on above: Non- GFR Calc Glucose measurementOrdered B y: Sam Goddard on 11-08-2024 Glucose [Mass/Vol] 110 mg/dL High 74-106 [facility] Comment on above: Fasting Glucose resu lt from 100 to 125 mg/dL suggests IMPAIRED HOMEOSTASIS per A.D.A. criteria. Potassium measurementOrdered By: Sam Goddard on 11-08-2024 Potassium [Moles/Vol] 3.2 mmol/L Low 3.5-5.1 [facility] Serum anion gap measurementO rdered By: Sam Goddard on 11-08-2024 Anion gap [Moles/Vol] 7 mmol/L 5-15 [facility] Serum or plasma calcium radha urement (mass/volume)Ordered By: Sam Goddard on 11-08-2024 Calcium [Mass/Vol] 9.9 mg/dL 8.5-10.1 [facility] Serum or plasma creatinine m easurement (mass/volume)Ordered By: Sam Goddard on 11-08-2024 Creatinine [Mass/Vol] 0.70 mg/dL 0.55-1.02 [facility] Comment on above: The validity of the calculated GFR & GFRAA in patients over 70 years has not been determined. Clinical correlation is essential. Serum or plasma urea nitroge n measurement (mass/volume)Ordered By: Sam Goddard on 11-08-2024 Urea nitrogen [Mass/Vol] 22 mg/dL High 7-18 [facility] Sodium levelOrdered By: Sam Goddard on 11-08-2024 Sodium [Moles/Vol] 137 mmol/L 136-145 [facility] Amorphous sediment detection in urine sediment by light microscopyOrdered By: Sam Goddard on 08-17-2023 Amorphous sediment LM Ql (Urine sed) 1+ PHOS [facility] Basophil percentageOrdered B y: Sam Goddard on 08-17-2023 Basophil percentage >100 SEEN /hpf 0-5 [facility] Bilirubin Test strip Ql (U)O rdered By: Sam Goddard on 08-17-2023 Bilirubin Ql (U) Negative Negative [facility] Culture, urineOrdered By: Daniel Goddard on 08-17-2023 Bacteria identified Cx Nom (U) Escherichia coli [facility] Ketones Test strip Ql (U)Ord ered By: Sam Goddard on 08-17-2023 Ketones Ql (U) Negative Negative [facility] Mucus LM Ql (Urine sed)Order ed By: Sam Goddard on 08-17-2023 Mucus Ql (Urine sed) 0 SEEN /hpf [facility] Nitrite Test strip Ql (U)Ord ered By: Sam Goddard on 08-17-2023 Nitrite Ql (U) Negative Negative [facility] Protein Test strip Ql (U)Ord ered By: Sam Goddard on 08-17-2023 Protein Ql (U) 30 mg/dl Negative [facility] Squamous epithelial cells de tection in urine sediment by light microscopyOrdered By: Sam Goddard on 08-17-2023 Epithelial cells.squamous LM Ql (Urine sed) 0-5 SEEN /hpf 5-10 [facility] Urine blood detectionOrdered By: Sam Goddard on 08-17-2023 RBC Ql (U) 250 /ul Negative [facility] RBC Ql (U) > 100 SEEN /hpf 0-5 [facility] Urine clarityOrdered By: Cami Goddard on 08-17-2023 Clarity (U) Cloudy Clear [facility] Urine color determinationOrd ered By: Sam Goddard on 08-17-2023 Color (U) Yellow Yellow [facility] Urine glucose detectionOrder ed By: Sam Goddard on 08-17-2023 Glucose Ql (U) Normal mg/dl Normal [facility] Urine leukocyte esterase det ection by dipstickOrdered By: Sam Goddard on 08-17-2023 Leukocyte esterase Test strip Ql (U) 500 /ul Negative [facility] Urine pHOrdered By: Sam hatch on 08-17-2023 pH (U) 8.0 [pH] 5.0 - 8.0 [facility] Urine sediment bacteria coun t by microscopy (number/high power field)Ordered By: Sam Goddard on 08-17-2023 Bacteria LM.HPF (Urine sed) [#/Area] RARE /hpf None Seen [facility] Urine specific gravity measu rementOrdered By: Sam Goddard on 08-17-2023 Specific gravity (U) [Rel density] 1.015 1.002-1.030 [facility] Urobilinogen Auto test strip Ql (U)Ordered By: Sam Goddard on 08-17-2023 Urobilinogen Ql (U) Normal mg/dl Normal [facility] Basophil percentageOrdered B y: Sam Goddard on 07-20-2023 Bilirubin [Mass/Vol] 0.40 mg/dL 0.20-1.00 [facility] Comment on above: For patients on eltr ombopag therapy, use of Dimension [place] TBIL is not recommended. Chloride [Moles/Vol] 107 mmol/L 98-107 [facility] Cholesterol [Mass/Vol] 170 mg/dL <200 [facility] Comment on above: <200 mg/dL Desirable 200-240 mg/dL Borderline >240 mg/dL High Risk Glucose [Mass/Vol] 91 mg/dL 74-106 [facility] Potassium [Moles/Vol] 3.9 mmol/L 3.5-5.1 [facility] Protein [Mass/Vol] 7.6 g/dL 6.4-8.2 [facility] Sodium [Moles/Vol] 138 mmol/L 136-145 [facility] Triglyceride [Mass/Vol] 165 mg/dL <199 [facility] Comment on above: The drugs N-Acetylcy steine and Metamizole may falsely depress this assay.Serum Triglycerides Reference Interval Normal <150 mg/dL Borderline high 150 - 199 mg/dL High 200 - 499 mg/dL Very High > or = 500 mg/dL Laboratory - Chemistry and C hemistry - challengeOrdered By: Sam Goddard on 07-20-2023 ALP [Catalytic activity/Vol] 79 U/L 45-117 [facility] ALT [Catalytic activity/Vol] 28 U/L 13-56 [facility] CO2 [Moles/Vol] 25.0 mmol/L 21.0-32.0 [facility] Globulin (S) [Mass/Vol] 3.8 g/dL 2.2-4.2 [facility] Lipase [Catalytic activity/Vol] 45 U/L 13-75 [facility] Comment on above: Please note:LIPASE r evised reference range effective 23. New Lipase methodology. Expected to produce lower values than the previous assay method. NEW Reference Range: 13 - 75 U/L Urea nitrogen/Creatinine [Mass ratio] 20.8 mg/mg 10-20 [facility] No Panel InformationOrdered By: Sam Goddard on 07-20-2023 C-Reactive Protein High Sensitivity 8.58 mg/L <3.00 [facility] Comment on above: Low Relative Risk of CVD <1.0 mg/L Average Relative Risk of CVD 1.0 - 3.0 mg/L High Relative Risk of CVD >3.0 mg/L Estimated GFR (MDRD) Amer 103 mL/min >60 [facility] Comment on above: GFR Calc Estimated GFR (MDRD) Non-Af Amer 86 mL/min >60 [facility] Comment on above: Non- GFR Calc Serum or plasma albumin radha urement (mass/volume)Ordered By: Sam Goddard on 07-20-2023 Albumin [Mass/Vol] 3.8 g/dL 3.2-5.0 [facility] Serum or plasma albumin/glob ulin mass ratioOrdered By: Sam Goddard on 07-20-2023 Albumin/Globulin [Mass ratio] 1.0 {ratio} 0.9-2.4 [facility] Serum or plasma calcium radha urement (mass/volume)Ordered By: Sam Goddard on 07-20-2023 Calcium [Mass/Vol] 9.5 mg/dL 8.5-10.1 [facility] Serum or plasma cholesterol in HDL measurement (mass/volume)Ordered By: Sam Goddard on 07-20-2023 Cholesterol in HDL [Mass/Vol] 54 mg/dL >40 [facility] Comment on above: The drugs N-Acetylcy steine and Metamizole may falsely depress this assay. Reference Range HDL <40 mg/dL Low HDL Cholesterol HDL >or= 60 mg/dL High HDL Cholesterol Serum or plasma cholesterol in VLDL measurement (mass/volume)Ordered By: Sam Goddard on 07-20-2023 Cholesterol in VLDL [Mass/Vol] 33 mg/dL 5-40 [facility] Serum or plasma creatinine m easurement (mass/volume)Ordered By: Sam Goddard on 07-20-2023 Creatinine [Mass/Vol] 0.72 mg/dL 0.55-1.02 [facility] Comment on above: The validity of the calculated GFR & GFRAA in patients over 70 years has not been determined. Clinical correlation is essential. Serum or plasma low density lipoprotein (LDL) cholesterol measurement (mass/volume)Ordered By: Sam Goddard on 07-20-2023 Cholesterol in LDL [Mass/Vol] 83 mg/dL 0-130 [facility] Serum or plasma urea nitroge n measurement (mass/volume)Ordered By: Sam Goddard on 07-20-2023 Urea nitrogen [Mass/Vol] 15 mg/dL 7-18 [facility] Thin prep Papanicolaou smear with manual screeningOrdered By: Sam Goddard on 07-20-2023 Thin prep Papanicolaou smear with manual screening 19 U/L 15-37 [facility] Thin prep Papanicolaou smear with manual screening 6 - [facility] Vital Signs Date Time Vital Sign Value Performing Clinician Faci lity 09-13-2025 09:47-0400 Body height 166.[address] Sam Goddard MD Work Phone: [facility] 09-13-2025 09:47-0400 Body mass index (BMI) [Ratio] 34.5 kg/m2 Dr. Sam Goddard MD Work Phone: [facility] 09-13-2025 09:47-0400 Body weight 95.[address] Sam Goddard MD Work Phone: [facility] 09-13-2025 09:47-0400 Diastolic blood pressure 81 mm[Hg] Dr. Sam Goddard MD Work Phone: [facility] 09-13-2025 09:47-0400 Heart rate 83 /min Dr. Sam Goddard MD Work Phone: [facility] 09-13-2025 09:47-0400 Respiratory rate 16 /min Dr. Sam Goddard MD Work Phone: [facility] 09-13-2025 09:47-0400 Systolic blood pressure 142 mm[Hg] Dr. Sam Goddard MD Work Phone: [facility] 02-05-2025 12:39-0400 Body temperature 97.9 [degF] Sabrina Sellers [employer]UBULAR [employer] MACHINE FORMER.[employer]OR [employer] Work Phone: [facility] 02-05-2025 12:39-0400 Body weight 98.4 kg Sabrina Sellers TUBULAR [employer] MACHINE FORMER.[employer] PROF[employer] Work Phone: [facility] 02-05-2025 12:39-0400 Diastolic blood pressure 84 mm[Hg] Sabrina Sellers TUBULAR STOCK GLASS BUL[employer] MACHINE FORMER.[employer] PROF[employer] Work Phone: [facility] 02-05-2025 12:39-0400 Heart rate 90 /min Sabrina Sellers TUBULAR [employer]OCK [employer] MACHINE FORMER.[employer] PROF[employer] Work Phone: [facility] 02-05-2025 12:39-0400 Respiratory rate 16 /min Sabrina Sellers TUBULAR [employer]OCK [employer] MACHINE FORMER.[employer] PROF[employer] Work Phone: [facility] 02-05-2025 12:39-0400 SaO2% (BldA) [Mass fraction] 97 % Sabrina Sellers [employer]UBULAR [employer] MACHINE FORMER.[employer] PROFESS[employer] Work Phone: [facility] 02-05-2025 12:39-0400 Systolic blood pressure 130 mm[Hg] Sabrina Sellers TUBULAR [employer]OCK [employer] MACHINE FORMER.[employer] PROF[employer] Work Phone: [facility] Encounters Encounter Date Encounter Type Care Provider Facility Start: 10-11-2025 ambulatory [facility] Facility:[facility] Start: 10-09-2025 ambulatory [facility] Facility:[facility] Start: 09-15-[address] Negro Duran MD -Laboratory Work Phone: Start: 09-15-2025 End: 09-15-2025 ambulatory Negro Duran Facility:[facility] Start: 09-13-2025 End: 09-13-[address] Negro Duran MD -[facility] Work Phone: Start: 09-13-2025 End: 09-13-[address] Sam Goddard MD Work Phone: -[facility] Start: 02-13-2025 End: 02-13-[address] Sam Goddard MD Work Phone: [facility] Work Phone: Start: 02-13-2025 End: 02-13-[address] Sam Goddard MD -Laboratory, [facility] Start: 02-13-2025 End: 02-13-2025 ambulatory Sam [place] Facility:[facility] Start: 02-05-2025 End: 02-05-2025 ambulatory Facility:[facility] Start: 02-05-2025 End: 02-05-2025 Patient encounter procedure Sabrina Sellers APRN.[employer] PROF[employer]OR [employer] Work Phone: [facility] Comment on above: Viral URI with cough (Primary Dx) Start: 12-20-2024 End: 12-20-[address] Sam Goddard MD -Laboratory, [facility] Start: 12-20-2024 End: 12-20-2024 ambulatory Sam Goddard Facility:[facility] Start: 11-08-2024 End: 11-08-[address] Sam Goddard MD -Laboratory, [facility] Start: 11-08-2024 End: 11-08-2024 ambulatory Sam [place] Facility:[facility] Start: 03-02-2024 End: 03-02-2024 ambulatory [facility] Work Phone: Start: 03-02-2024 End: 03-02-2024 Patient encounter procedure [facility]-Outpatient Bone Densitometry Work Phone: Start: 08-17-2023 End: 08-17-2023 ambulatory [facility] Work Phone: Start: 08-17-2023 End: 08-17-2023 Patient encounter procedure [facility]-Laboratory, Specimen Work Phone: Start: 07-20-2023 End: 07-20-2023 ambulatory [facility] Work Phone: Start: 07-20-2023 End: 07-20-2023 Patient encounter procedure [facility]-Laboratory, [facility] Procedures Date Procedure Procedure Detail Performing Clinician Start: 03-02-2024 Dual energy X-ray absorptiometry Start: 03-02-2024 Screening mammography Start: 08-17-2023 Bacteria identified in Urine by Culture Start: 08-17-2023 Urine culture Start: 08-23-2012 Colonoscopy Sabrina khalil APRN.[employer] Work Phone: Plan of Treatment Date Care Activity Detail Author Start: 06-30-2026 Urine microalbumin profile DTaP,Tdap,Td Vaccine (2 - Td or Tdap) [facility] Start: 09-13-2025 End: 09-13-2025 Evaluation of diagnostic study results [facility] Start: 03-25-2025 Covid-19 Vaccine ( season) Covid-19 Vaccine () [facility] Start: 11-30-2024 Advance Directive Discussion Advance Directive Discussion [facility] Start: 08-23-2022 Screening for malign ant neoplasm of colon [facility] Start: 2020 Screening for osteoporosis Bone Density Screening [facility] Start: 04-29-2014 Diabetes Screening Diabetes Screenin g [facility] Start: 2000 Lipid panel Lipid Screening [facility] Start: 2000 Screening for malign ant neoplasm of colon [facility] Start: 1995 Screening for malign ant neoplasm of breast Mammogram Screening [facility] Start: 1973 Anxiety Screening Anxiety Screening [facility] Start: 1973 Depression Screening Depression Scre ening [facility] Start: 1973 Hepatitis C screening Hepatitis C [facility] angiography of coronary arteries [facility] Immunizations Immunization Date Immunization Notes Care Provider Avni romeo 12-31-2016 Influenza virus vaccine [facility] Payers Date Payer Category Payer Self-pay [id number] 2022 Private Health Insurance [employer] MED ICARE SUPPLEMENT [id number] 2022 Unknown [id number] 2019 Medicare MEDICARE [id number] 2019 Medicare [id number] 2015 Unknown [id number] Unknown [id number] Unknown [id number] Unknown [id number] Unknown [id number] Unknown [id number] Unknown [id number] Unknown [id number] Social History Date Type Detail Facility [facility]: [facility] Start: 03-28-2017 Rare [facility] Start: 03-28-2017 Non-smoker [facility] Start: 1955 Sex Assigned At Female [facility] Start: 04-29-2011 End: 12-12-2021 Tobacco smoking status NHIS Never smoked tobacco [facility] Start: 04-29-2011 Tobacco use and exposure Smokeless tobacco non-user [facility] Start: 07-16-2022 Alcoholic beverage intake Current non-drinker of alcohol (finding) [facility] Start: 1955 Sex assigned at Not on file [facility] Gender identity Not on file [facility] Start: 02-22-2025 Sex Female (finding) [facility] Start: 09-11-2025 [facility] Progress note 09-13-2025 Note Date & Type Note Facility 09-13-2025 Progress note [facility] Progress note 02-05-2025 Note Date & Type Note Facility 02-05-2025 Note HNO ID: [id number] Author: SABRINA SELLERS APRN.[employer] PROF[employer] Service: ? Author Type: Nurse Practitioner Type: Progress Notes Filed: 02/05/2025 12:52 Note Text: [facility] Subjective Kaleigh Goss is a 70 year old female. Patient presents with: Chest Congestion: cough, sinus pressure, fever x 5 days Present for 5 day history of cough, congestion and fever. Reports symptoms have progressively worse since Thursday night. The history is provided by the patient. Review of Systems Constitutional: Positive for chills and fever. HENT: Positive for congestion, rhinorrhea, sinus pressure and sinus pain. Respiratory: Positive for cough. Negative for shortness of breath. Cardiovascular: Negative for chest pain. Objective BP 130/84 Pulse 90 Temp 36.6 ?C (97.9 ?F) Resp 16 Wt 98.4 kg (216 lb 14.9 oz) SpO2 97% Physical Exam Constitutional: General: She is not in acute distress. Appearance: Normal appearance. HENT: Head: Normocephalic. Nose: Congestion and rhinorrhea present. Mouth/Throat: Mouth: Mucous membranes are moist. Pharynx: No oropharyngeal exudate or posterior oropharyngeal erythema. Eyes: Conjunctiva/sclera: Conjunctivae normal. Cardiovascular: Rate and Rhythm: Normal rate and regular rhythm. Pulmonary: Effort: Pulmonary effort is normal. No respiratory distress. Breath sounds: Normal breath sounds. No wheezing. Neurological: Mental Status: She is alert. Psychiatric: Behavior: Behavior normal. ASSESSMENT/PLAN: 1. Viral URI with cough - ICD9: 465.9, ICD10: J06.9 - Discussed viral etiology and rationale for treatment. - Symptomatic treatment with prn analgesia - Supportive care with fluids and rest - The patient may also use OTC decongestants prn, OTC cough and cold meds as needed, warm salt water gargles, throat lozenges and/or OTC throat spray as needed, and nasal saline gtts and suction prn. - Follow up in 3-5 days if symptoms persist or sooner if worsening of symptoms Sabrina Sellers APRN.[employer] PROFESSOR [employer] Differential Diagnoses - Viral URI with cough is more likely for the following reason(s): suggested by HANDP - covid is less likely for the following reason(s): neg covid test at home 02/04, HANDP not suggestive and laboratory studies not suggestive Disposition The patient was discharged. [facility] History of Present illness Narrative 02-05-2025 Sabrina Sellers APRN.[employer] PROFESSOR [employer] - 02/05/2025 12:49 PM EDT Note Date & Type Note Facility 02-05-2025 History of Presen t illness Narrative [facility] Subjective Kaleigh Goss is a 70 year old female. Patient presents with: Chest Congestion: cough, sinus pressure, fever x 5 days Present for 5 day history of cough, congestion and fever. Reports symptoms have progressively worse since Thursday night. The history is provided by the patient. Review of Systems Constitutional: Positive for chills and fever. HENT: Positive for congestion, rhinorrhea, sinus pressure and sinus pain. Respiratory: Positive for cough. Negative for shortness of breath. Cardiovascular: Negative for chest pain. Objective BP 130/84 Pulse 90 Temp 36.6 C (97.9 F) Resp 16 Wt 98.4 kg (216 lb 14.9 oz) SpO2 97% Physical Exam Constitutional: General: She is not in acute distress. Appearance: Normal appearance. HENT: Head: Normocephalic. Nose: Congestion and rhinorrhea present. Mouth/Throat: Mouth: Mucous membranes are moist. Pharynx: No oropharyngeal exudate or posterior oropharyngeal erythema. Eyes: Conjunctiva/sclera: Conjunctivae normal. Cardiovascular: Rate and Rhythm: Normal rate and regular rhythm. Pulmonary: Effort: Pulmonary effort is normal. No respiratory distress. Breath sounds: Normal breath sounds. No wheezing. Neurological: Mental Status: She is alert. Psychiatric: Behavior: Behavior normal. ASSESSMENT/PLAN: 1. Viral URI with cough - ICD9: 465.9, ICD10: J06.9 - Discussed viral etiology and rationale for treatment. - Symptomatic treatment with prn analgesia - Supportive care with fluids and rest - The patient may also use OTC decongestants prn, OTC cough and cold meds as needed, warm salt water gargles, throat lozenges and/or OTC throat spray as needed, and nasal saline gtts and suction prn. - Follow up in 3-5 days if symptoms persist or sooner if worsening of symptoms Sabrina Sellers APRN.[employer] PROFESSOR [employer] Differential Diagnoses - Viral URI with cough is more likely for the following reason(s): suggested by H&P - covid is less likely for the following reason(s): neg covid test at home 02/04, H&P not suggestive and laboratory studies not suggestive Disposition The patient was discharged. documented in this encounter [facility] Evaluation note Note Date & Type Note Facility Evaluation note No assessment information [facility] Work Phone: Evaluation note Note Date & Type Note Facility Evaluation note Diagnosis Viral URI with cough- Primary Acute upper respiratory infections of unspecified site documented in this encounter [facility] Evaluation note Note Date & Type Note Facility Evaluation note Diagnosis Onset Date Resolution Encounter for screening for lipoid disorders acute August 9:45am SOB (shortness of breath) acute September 13 9:45am Hypertension chronic August 9:45am [facility] Work Phone: Progress note Note Date & Type Note Facility Progress note Note Date/Time September 13, 2025 10:47am [facility] [address] [place] [address] OFFICE VISIT Date of Service: 09/13/25 MR#: [id number] Acct: [id number] Name: KALEIGH GOSS Rep #: [id number] : 1955 Provider: Dr. Chiki Duran MD Age/Sex: 70/F Location: [facility] Status: Signed HPI HPI History of Present Illness Details: The patient is a 70-year-old female with a history of hypertension and fluid retention, presenting for evaluation of dyspnea and management of blood pressureand medication regimen. The patient reports a recent episode of dyspnea while sitting, described as an uncomfortable sensation she had never experienced before. She denies any other associated symptoms during this episode. She has used albuterol as needed, which provides some relief. Her has noted thatshe often breathes heavily, particularly after activities such as running up stairs. She has been monitoring her blood pressure, heart rate, and oxygen saturation over the past year and notes that her blood pressure readings have been elevatedrecently. She has a documented history of hypertension and has been taking triamterene/hydrochlorothiazide for decades, initially prescribed for fluid retention following a hysterectomy performed over 25 years ago. She reports thatif she stops taking the medication, she experiences significant fluid retention,gaining approximately 3 pounds of water weight overnight, with associated edema in her feet and hands. She was advised to increase her dose to two pills daily due to elevated blood pressure but has been inconsistent with this regimen. Shedenies any chest pain or paroxysmal nocturnal dyspnea and she does not have any pedal edema when she is on her current medications. Physical exam is unremarkable electrocardiogram demonstrates sinus rhythm with a rate of 77 bpm poor R wave progression is present. In October, her potassium level was found to be low, and she was started on potassium supplementation. A recheck in February showed normal potassium levels, and the supplementation was discontinued. She was also prescribed magnesium oxide but has not taken it. She was recently prescribed doxepin to help with sleep instead of clonazepam, and compounded tirzepatide, which she plans to start now that she has returned from a trip to [place]. She walks 3 miles daily and follows a diet influenced by Mediterranean and Blue Zone principles. She denies eating this morning. She reports a history of elevated CRP levels and mentions that her cholesterol was last checked in January 2023. She has a family history of longevity, with her [id number] living to 97 years. 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 Required: No Accompanied by: Self Is patient in pain?: No Allergies ampicillin Allergy (Intermediate, Verified 09/13/25 09:52) Diarrhea bacitracin (From Neosporin ([id number])) Allergy (Intermediate, Verified 09/13/25 09:52) Rash imipramine (From Tofranil) Allergy (Intermediate, Verified 09/13/25 09:52) PT UNSURE OF REACTION nefazodone (From Serzone) Allergy (Intermediate, Verified 09/13/25 09:52) PT UNSURE OF REACTION neomycin (From Neosporin ([id number])) Allergy (Intermediate, Verified 09/13/25 09:52) Rash polymyxin B (From Neosporin ([id number])) Allergy (Intermediate, Verified 09/13/25 09:52) Rash amitriptyline (From Elavil) Adverse Reaction (Intermediate, Verified 09/13/25 09:52) felt poorly diclofenac (From Voltaren) Adverse Reaction (Intermediate, Verified 09/13/25 09:52) Abd cramps/diarrhea etodolac Adverse Reaction (Intermediate, Verified 09/13/25 09:52) dizziness hydroxyzine (From Vistaril) Adverse Reaction (Intermediate, Verified 09/13/25 09:52) felt poorly nizatidine (From Axid) Adverse Reaction (Intermediate, Verified 09/13/25 09:52) felt poorly Medications ?Medication ?Instructions ?Recorded ?Confirmed ?Type albuterol sulfate 90 mcg/actuation 2 inh inhalation Q6 H PRN 09/11/25 09/13/25 History breath activated powder inhaler clonazepam 0.5 mg tablet 0.5 mg PO BID PRN 09/11/25 1 History magnesium oxide 400 mg PO QDAY 09/11/2508/30 History tirzepatide 2.5 mg/0.5 mL 2.5 mg subcut QWEEK 09/11/25 09/13/25 History subcutaneous pen injector (Mounjaro) hydrochlorothiazide 25 mg tablet 25 mg PO QAM #90 tabs 09/13/25 09/13/25 Rx losartan 100 mg tablet 100 mg PO QDAY #90 tabs 08/3009/13/25 Rx Have you fallen in the past year?: No PFSH Medical History (Updated 09/13/25 @ 10:[address] Negro Duran MD) Class 2 obesity SOB (shortness of breath) Anxiety Presbycusis Hypertension Surgical History (Updated 09/11/25 @ 11:36 by Kenia Boss RN) No history of previous surgery Social History (Updated 09/11/25 @ 11:32 by Kenia Boss RN) Smoking Status: Former smoker alcohol intake: current alcohol intake frequency: holidays/special occasions only substance use type: does not use ROS Const Const: Negative for fatigue, weakness, daytime sleepiness or difficulty sleeping ENT ENT: Negative for dizziness or Nosebleed/epistaxis Cardio Chest Pain: No Palpitations: No Edema: None Resp Respiratory: Positive for SOB with activity and SOB at rest; Negative for SOB orthopnea\\SOB lying down or Cough GI GI: Negative nausea, vomiting or heartburn Neuro Neuro: Negative for dizziness, lightheadedness, near syncope or weakness Endo Endo: Negative for fatigue Cardiology Exam Const Appearance: cooperative, healthy appearing, no acute distress, well developed and well groomed Nutritional Appearance: average body habitus and well nourished Orientation: alert, awake and oriented x3 Head Head: normal to inspection, normocephalic and atraumatic Ears: hearing grossly normal bilaterally and external ears normal Nose: external nose normal, nares normal, nasal mucous membranes and turbinates normal, septum normal and no nasal discharge Face and Sinus: face symmetric Mouth: oral mucosae normal, tongue normal, oropharynx normal and moist mucous membranes Teeth and gingiva: dentition normal Throat: posterior oropharynx normal, tonsils normal and uvula midline Eyes General: appearance normal, both eyes and all related structures Eyelids: eyelids normal Conjunctivae: conjunctivae normal Pupils: PERRL, normal by confrontation and accommodation normal EOM: EOM intact bilaterally Neck Neck: normal visual inspection, trachea midline and no JVD JVD: +5 Carotids: normal carotid upstroke and bounding pulses Chest Chest inspection: normal inspection of the chest, symmetric chest movement and normal respiratory effort Auscultation: Bilateral: Clear to Auscultation Cardio Palpation: normal PMI Rate: regular rate Rhythm: regular rhythm Heart sounds: S1 normal, S2 normal and normal, physiologic split S2; Negative rub, gallop or murmur GI GI: normal to inspection, soft, no hepatosplenomegaly and bowel sounds present Neuro General: patient alert, patient awake, patient oriented x3, gait normal, moves all extremities and no focal sensory deficit Skin Skin: no rashes or lesions noted Extremities Pulses: Normal: Right Femoral Pulse, Left Femoral Pulse, Right Dorsalis Pedis Pulse, Left Dorsalis Pedis Pulse, Right Posterior Tibial Pulse, Left Posterior Tibial Pulse, Right Radial Pulse and Left Radial Pulse Lower Extremity Edema: None: Bilateral Musculoskel Musculoskeletal: No joint tenderness Psych Psychological: normal affect Supplemental Info Supplemental Information Labs: LDL Cholesterol, (0-130) 83 mg/dL HDL Cholesterol, (40-) 54 mg/dL Cholesterol, (200) 170 mg/dL Triglycerides, (-199) 165 mg/dL Diagnostics: Electrocardiogram Chest X-Ray Abdomen Ultrasound Past Visits: Cardiology Visit Today Assessment and Plan Assessment and Plan (1) Hypertension: Status: Chronic Plan: # Essential (primary) hypertension (I10) # Hypokalemia (E87.6) Chronic hypertension with increasing BP readings this year; long-term use of triamterene-HCTZ has contributed to chronic low-normal potassium levels. - Discontinue triamterene-HCTZ. - Start losartan and HCTZ as separate agents. - Educated patient on diuretic dependence, fluid shifts, and rationale for medication changes. - Advised to discontinue potassium and magnesium supplementation. - Order echocardiogram to assess cardiac function. - Order coronary calcium score. - Follow-up in 6 months. (2) SOB (shortness of breath): Status: Acute Plan: # Shortness of breath (R06.02) Single episode of SOB; EKG normal. - Order echocardiogram to further evaluate cardiac function. She has been started on compounded tirzepatide and at this time I do not have any reason to think that she cannot start it. We have also talked about other ways of dietary modification. (3) Encounter for screening for lipoid disorders: Status: Acute Plan: # Encounter for screening for lipoid disorders (Z13.220) No recent lipid panel on file. - Order fasting lipid panel and lipoprotein(a). - Order high-sensitivity CRP. Orders: Orders 12 Lead EKG performed by [facility] Today I10 - Essential (primary) hypertension, R06.02 - Shortness of breath Basic Metabolic Profile (BMP) Today I10 - Essential (primary) hypertension Lipid Profile Today E78.5 - Hyperlipidemia, unspecified Liver Profile Today I10 - Essential (primary) hypertension Magnesium Today I10 - Essential (primary) hypertension Thyroid Stim Hormone (TSH) Today E78.5 - Hyperlipidemia, unspecified Lipoprotein A Today I10 - Essential (primary) hypertension Cardiac Calcium Scoring 1 Week I10 - Essential (primary) hypertension Echo Complete Today I10 - Essential (primary) hypertension CRP, High Sensitivity Today I10 - Essential (primary) hypertension Medications: New losartan 100 mg PO QDAY 90 tabs 4RF hydrochlorothiazide 25 mg PO QAM 90 tabs 3RF Discontinued triamterene-hydrochlorothiazid 37.5-25 mg Discontinued Reason: Order Changed 1 cap PO DAILY Plan Details Follow Up: 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 Sam Goddard MD ~ [facility] Work Phone: Reason for referral (narrative) Note Date & Type Note Facility Reason for referral (narrative) No reason for referral information available [facility] Work Phone: Family History No Family History Records Found Relationship Condition Age at Onset Recorded Date/T rachel Unknown Family History?- Unknown March 28, 2017 5:02pm Family History?- Unknown March 28, 2017 5:02pm Family History?- Unknown July 06, 2020 12:10pm Advance Directives No Advanced Directives Records Found Advance Directive Response Recorded Date/ Time Living Will Yes July 06, 2020 12:10pm Power of Interlocking Installer Yes July 06 12:10pm Chief Complaint and Reason for Visit Chief Complaint SCREENING OSTEO Chief Complaint Admit Date 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 Saman Caldera MD Family Provider Active Dr. Sam Goddard MD Primary Care Provider Active Team Status: Inactive Member Role Status Dates Dr. Sam Goddard MD Primary Care Provider, Attending Radames parekh Active Team Status: Inactive Member Role Status Dates Dr. Sam Goddard MD Primary Care Provide r, Attending Provider, Referring Provider Active Team Status: Inactive Member Role Status Dates Dr. Sam Goddard MD Primary Care Provider Active Start: November 08, 2024 End: November 08, 2024 Dr. Sam Goddard MD Attending Provider Active St art: November 08, 2024 End: November 08, 2024 Team Status: Inactive Member Role Status Dates Dr. Sam Goddard MD Primary Care Provider Active Start: December 20, 2024 End: December 20, 2024 Dr. Sam Goddard MD Attending Provider Active St art: December 20, 2024 End: December 20, 2024 Dr. Sam Goddard MD Referring Provider Active St art: December 20, 2024 End: December 20, 2024 Team Status: Inactive Member Role Status Dates Dr. Sam Goddard MD Primary Care Provider Active Start: February 13, 2025 End: February 13, 2025 Dr. Sam Goddard MD Attending Provider Active St art: February 13, 2025 End: February 13, 2025 Dr. Sam Goddard MD Referring Provider Active St art: February 13, 2025 End: February 13, 2025 Team Status: Active Member Role/Relationship Status Dates Dr. Sam Goddard MD Primary care physician Active Team Status: Inactive Member Role/Relationship Status Dates Dr. Sam Goddard MD Primary care physician Active Start: September 13, 2025 End: September 13, 2025 Dr. Sam Goddard MD Referring Provider Active St art: September 13, 2025 End: September 13, 2025 Dr. Negro Duran MD Attending physician Active Start: September 13, 2025 End: September 13, 2025 Team Status: Active Member Role/Relationship Status Dates Dr. Sam Goddard MD Primary care physician Active Start: September 15, 2025 Dr. Negro Duran MD Attending physician Active Start: September 15, 2025 Dr. Negro Duran MD Referring Provider Active S tart: September 15, 2025 Goals (unrecognized section and content) Goals may be documented in a n alternate sectionGoals may be documented in an alternate sectionGoals may be documented in an alternate sectionGoals may be documented in an alternate sectionGoals may be documented in an alternate section Source Comments (unrecognize d section and content) In the event this informatio n is protected by the Federal Confidentiality of Alcohol and Drug Abuse Patient Records regulations: The Federal rules restrict any use of the information to criminally investigate or prosecute any alcohol or drug abuse patient.[facility] Reason for Visit (unrecogniz ed section and content) Reason Comments Chest Congestion cough, sinus pressur e, fever x 5 days INFORMATION SOURCE (unrecogn ized section and content) DATE CREATED AUTHOR 02/06/2025 [facility] DATE CREATED AUTHOR AUTHOR'S CLAUDINE RENTERIA 10/07/2025 [facility] FOR RECORDS PERTAINING TO PATIENTS WHO ARE OR HAVE BEEN ENROLLED IN A CHEMICAL DEPENDENCY/SUBSTANCEABUSE PROGRAM, SOME INFORMATION MAY BE OMITTED. This clinical summary was aggregated from multiple sources. Caution should be exercised in using it in the provision of clinical care. This summary normalizes information from multiple sources, and as a consequence, information in this document may materially change the coding, format and clinical context of patient data. In addition, data may be omitted in some cases. CLINICAL DECISIONS SHOULD BE BASED ON THE PRIMARY CLINICAL RECORDS. [facility] provides no warranty or guarantee of the accuracy or completeness of information in this document.
== END | disposition home or self-care (01) ==
LOC: CVS 12:50
PROVIDERS: PCP Family Medicine; Referring Provider Internal Medicine Cardiovascular Disease; Visit Provider Internal Medicine Cardiovascular Disease
DX: I10 Essential (primary) hypertension (principal); R06.02 Shortness of breath
CPT/HCPCS: 93306